=== PATIENT | male | born 1945 | race Caucasian/White ===

== ENCOUNTER 2018-05-16 15:21 | Inpatient (IN) | payer OTHER, MEDICARE ==
[2018-05-16] MEDS ORDERED: ACETAMINOPHEN INJECTION 100 ML IVPB ONE ×2 (15:31→22:15)
--- NOTE | 2018-05-16 15:36 | PDOC ---
History of Present Illness - General Chief Complaint: SIRS, Suspected/Possible Stated Complaint: FEVER History Source: Patient Exam Limitations: No Limitations - History of Present Illness Initial Comments: 05/16/18 19:56 72 yo M with a hx of lung cancer stage 4 (followed by Dr. Damon at [facility]; on lorlatinib daily), DM, and HLD presents to the emergency department after a sudden onset of fevers and chills that occurred at 12 pm today. Prior to this, the patient stated he felt fine and denied recent sick contacts. He began feeling feverish with chills while in [place] (his primary residence). They drove to his son's home in [facility] and was symptomatic and presented to the ED. The patient states he had increase in SOB, but denies the following: nausea, vomiting, ears/nose/throat pain, chest pain, dysuria, abdominal pain, diarrhea, hematuria, hematochezia, and leg pain/swelling. Endorses travel [place] ago, but denies hx of DVT/PE, recent surgeries, recent immobilizations, and hormone use. In addition, 11/2017 he had a neoplastic process on his neck that was reduced with proton therapy. Per the patient, his doctors state that it has been unchanged in size and appearance. 05/17/18 00:07 Past History - Past Medical History Allergies/Adverse Reactions: Allergies Allergy/AdvReac Type Severity Reaction Status Date / Time codeine Allergy Verified 05/16/18 15:27 Home Medications: Ambulatory Orders Unobtainable 05/16/18 Cardiac Disorders: Yes (STAGE 4 LUNG) COPD: No - Surgical History Neurologic Surgery: Yes (CERVICAL) - Suicide/Smoking/Psychosocial Hx Smoking History: Never smoked Have you smoked in the past 12 months: No Information on smoking cessation initiated: No Hx Alcohol Use: No Drug/Substance Use Hx: No Review of Systems - Review of Systems Able to Perform ROS?: Yes Is the patient limited Hebrew proficient: No Constitutional: Yes: Chills, Fever. No: Diaphoresis, Weakness HEENTM: No: Recent change in vision, Nose Pain, Throat Pain, Mouth Pain Respiratory: Yes: Shortness of Breath. No: Cough, Hemoptysis Cardiac (ROS): No: Chest Pain, Lightheadedness, Palpitations, Syncope, Chest Tightness ABD/GI: No: Constipated, Diarrhea, Nausea, Poor Appetite, Poor Fluid Intake, Rectal Bleeding, Vomiting, Indigestion, Tarry Stools : No: Burning, Dysuria, Hematuria, Pain, Urgency Musculoskeletal: No: Back Pain, Joint Pain, Neck Pain Integumentary: No: Bruising, Lesions, Lumps, Rash Neurological: No: Headache, Numbness, Tremors, Weakness, Ataxia, Dizziness Psychiatric: No: Stressors Endocrine: No: Unexplained Weight Gain Hematologic/Lymphatic: No: Anemia *Physical Exam - Vital Signs Last Vital Signs Temp Pulse Resp BP Pulse Ox 102.6 F H 119 H 22 H 127/82 90 L 05/16/18 15:27 05/16/18 15:27 05/16/18 15:27 05/16/18 15:27 05/16/18 15:27 - Physical Exam General Appearance: Yes: Nourished, Appropriately Dressed. No: Apparent Distress, Intoxicated HEENT: positive: EOMI, LUCI, Normal Voice, Symmetrical, Hearing Grossly Normal. negative: Pale Conjunctivae, Scleral Icterus (R), Scleral Icterus (L), Muffled /Hoarse voice, Nasal Congestion, Sinus Tenderness, Excessive drooling Neck: positive: Trachea midline. negative: Tender, Lymphadenopathy (R), Lymphadenopathy (L), Tender lateral, Tender midline Respiratory/Chest: positive: Lungs Clear, Decreased Breath Sounds. negative: Chest Tender, Respiratory Distress, Crackles, Rales, Rhonchi, Stridor, Wheezing Cardiovascular: positive: Regular Rhythm, S1, S2, Tachycardia, Systolic Murmur ( grade 1) Gastrointestinal/Abdominal: positive: Normal Bowel Sounds, Flat, Soft. negative : Tender, Distended, Rebound, Tenderness, Hernia Lymphatic: negative: Adenopathy Musculoskeletal: positive: Normal Inspection. negative: CVA Tenderness, Vertebral Tenderness Extremity: positive: Normal Capillary Refill, Normal Inspection, Normal Range of Motion. negative: Tender, Calf Tenderness Integumentary: positive: Normal Color, Dry, Warm, Other (dry mucosa). 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 negative: EOM Palsy, Sensory Deficit Moderate Sedation - Procedure Monitoring Vital Signs: Procedure Monitoring Vital Signs Temperature 102.6 F H 05/16/18 15:27 Pulse Rate 119 H 05/16/18 15:27 Respiratory Rate 22 H 05/16/18 15:27 Blood Pressure 127/82 05/16/18 15:27 O2 Sat by Pulse Oximetry (%) 90 L 05/16/18 15:27 ED Treatment Course - LABORATORY CBC & Chemistry Diagram: 05/16/18 16:05 05/16/18 16:05 Medical Decision Making - Medical Decision Making 05/17/18 00:05 72 yo M with a hx of lung cancer stage 4 (followed by Dr. Damon at [facility]; on lorlatinib daily), DM, and HLD presents to the emergency department after a sudden onset of fevers and chills that occurred at 12 pm today. Initial vitals: Initial Vital Signs Temp Pulse Resp BP Pulse Ox 102.6 F H 119 H 22 H 127/82 90 L 05/16/18 15:27 05/16/18 15:27 05/16/18 15:27 05/16/18 15:27 05/16/18 15:27 Work up ddx: sepsis with etiology the following: cellulitis vs abscess on neck vs PNA vs UTI vs influenza. Laboratory Tests 05/16/18 05/16/18 05/16/18 16:05 16:05 16:05 WBC 14.5 H RBC 5.04 Hgb 14.2 Hct 41.7 MCV 82.7 MCH 28.1 MCHC 34.0 RDW 15.7 Plt Count 210 MPV 8.8 Absolute Neuts (auto) 13.4 H Neutrophils % 92.1 H Neutrophils % (Manual) 89.0 H Band Neutrophils % 7.0 Lymphocytes % 4.4 L Lymphocytes % (Manual) 4.0 L Monocytes % 2.5 L Monocytes % (Manual) 0 L Eosinophils % 0.6 Eosinophils % (Manual) 0.0 Basophils % 0.4 Basophils % (Manual) 0.0 Nucleated RBC % 0 Platelet Estimate Adequate PT with INR 12.80 INR 1.08 PTT (Actin FS) 29.5 VBG pH 7.43 H POC VBG pCO2 37.4 L POC VBG pO2 59.4 H Mixed VBG HCO3 24.3 Sodium Potassium Chloride Carbon Dioxide Anion Gap BUN Creatinine Creat Clearance w eGFR Random Glucose Lactic Acid Calcium Total Bilirubin AST ALT Alkaline Phosphatase Troponin I Total Protein Albumin Urine Color Urine Appearance Urine pH Ur Specific [place] Urine Protein Urine Glucose (UA) Urine Ketones Urine Blood Urine Nitrite Urine Bilirubin Urine Urobilinogen Ur Leukocyte Esterase Urine WBC (Auto) Urine RBC (Auto) Ur Epithelial Cells Urine Mucus Influenza A (Rapid) Influenza B (Rapid) Blood Type Antibody Screen 05/16/18 05/16/18 05/16/18 16:05 16:05 16:05 WBC RBC Hgb Hct MCV MCH MCHC RDW Plt Count MPV Absolute Neuts (auto) Neutrophils % Neutrophils % (Manual) Band Neutrophils % Lymphocytes % Lymphocytes % (Manual) Monocytes % Monocytes % (Manual) Eosinophils % Eosinophils % (Manual) Basophils % Basophils % (Manual) Nucleated RBC % Platelet Estimate PT with INR INR PTT (Actin FS) VBG pH POC VBG pCO2 POC VBG pO2 Mixed VBG HCO3 Sodium 141 Potassium 3.7 Chloride 106 Carbon Dioxide 24 Anion Gap 11 BUN 13 Creatinine 1.1 Creat Clearance w eGFR > 60 Random Glucose 254 H Lactic Acid 2.8 H* Calcium 9.2 Total Bilirubin 0.4 AST 19 ALT 23 Alkaline Phosphatase 114 Troponin I < 0.02 Total Protein 6.7 Albumin 3.5 Urine Color Urine Appearance Urine pH Ur Specific [place] Urine Protein Urine Glucose (UA) Urine Ketones Urine Blood Urine Nitrite Urine Bilirubin Urine Urobilinogen Ur Leukocyte Esterase Urine WBC (Auto) Urine RBC (Auto) Ur Epithelial Cells Urine Mucus Influenza A (Rapid) Influenza B (Rapid) Blood Type Antibody Screen 05/16/18 05/16/18 05/16/18 16:15 16:15 16:15 WBC RBC Hgb Hct MCV MCH MCHC RDW Plt Count MPV Absolute Neuts (auto) Neutrophils % Neutrophils % (Manual) Band Neutrophils % Lymphocytes % Lymphocytes % (Manual) Monocytes % Monocytes % (Manual) Eosinophils % Eosinophils % (Manual) Basophils % Basophils % (Manual) Nucleated RBC % Platelet Estimate PT with INR INR PTT (Actin FS) VBG pH POC VBG pCO2 POC VBG pO2 Mixed VBG HCO3 Sodium Potassium Chloride Carbon Dioxide Anion Gap BUN Creatinine Creat Clearance w eGFR Random Glucose Lactic Acid Calcium Total Bilirubin AST ALT Alkaline Phosphatase Troponin I Total Protein Albumin Urine Color Yellow Urine Appearance Slcloudy Urine pH 5.0 Ur Specific [place] 1.018 Urine Protein 2+ H Urine Glucose (UA) 3+ H Urine Ketones Trace H Urine Blood 2+ H Urine Nitrite Negative Urine Bilirubin Negative Urine Urobilinogen Negative Ur Leukocyte Esterase Negative Urine WBC (Auto) 4 Urine RBC (Auto) <1 Ur Epithelial Cells Rare Urine Mucus Rare Influenza A (Rapid) Negative Influenza B (Rapid) Negative Blood Type A POSITIVE Antibody Screen Negative 05/16/18 18:06 WBC RBC Hgb Hct MCV MCH MCHC RDW Plt Count MPV Absolute Neuts (auto) Neutrophils % Neutrophils % (Manual) Band Neutrophils % Lymphocytes % Lymphocytes % (Manual) Monocytes % Monocytes % (Manual) Eosinophils % Eosinophils % (Manual) Basophils % Basophils % (Manual) Nucleated RBC % Platelet Estimate PT with INR INR PTT (Actin FS) VBG pH POC VBG pCO2 POC VBG pO2 Mixed VBG HCO3 Sodium Potassium Chloride Carbon Dioxide Anion Gap BUN Creatinine Creat Clearance w eGFR Random Glucose Lactic Acid 2.3 H* Calcium Total Bilirubin AST ALT Alkaline Phosphatase Troponin I Total Protein Albumin Urine Color Urine Appearance Urine pH Ur Specific [place] Urine Protein Urine Glucose (UA) Urine Ketones Urine Blood Urine Nitrite Urine Bilirubin Urine Urobilinogen Ur Leukocyte Esterase Urine WBC (Auto) Urine RBC (Auto) Ur Epithelial Cells Urine Mucus Influenza A (Rapid) Influenza B (Rapid) Blood Type Antibody Screen initially lactic acid was 2.8 and elevated WBC. The patient was given a total of 3x 1L NS 0.9% for fluid resuscitation and given vancomycin and zosyn. CT did not show abscess in the neck and no PNA seen on imaging. Likely the infectious source is from the wound on the neck. will admit for antibiotics IV. Dispo: Admit *DC/Admit/Observation/Transfer Diagnosis at time of Disposition: Sepsis Qualifiers: Sepsis type: sepsis due to unspecified organism Qualified Code(s): A41.9 - Sepsis, unspecified organism - Discharge Dispostion Decision to Admit order: Yes - Referrals - Patient Instructions - Post Discharge Activity
[2018-05-16] MEDS ORDERED: SODIUM CHLORIDE 1,000 ML IV STA ×3 (16:03→20:33)
[2018-05-16] MEDS ORDERED: ACETAMINOPHEN 1000 MG/100 ML VIAL (NON FORMULARY) IVPB ONE ×2 (16:03→21:28)
--- NOTE | 2018-05-16 16:07 | PDOC ---
Attending Attestation - Physicial Exam PE: 05/16/18 17:06 GENERAL: Awake and alert, in no acute distress HEAD: No signs of trauma EYES: PERRLA, EOMI, sclera anicteric, conjunctiva clear ENT: (+) Dry mucous membranes, cracked tongue. Auricles normal inspection, hearing grossly normal, nares patent, oropharynx clear without exudates. NECK: (+) Yellow purulent drainage and surrounding erythema around incision at C3-C4. Normal ROM, supple, no lymphadenopathy, JVD, or masses LUNGS: (+) Tachypneic. (+) Lungs diminished at bases. No wheezes or crackles. HEART: (+) Tachycardic. Regular rhythm, normal S1 and S2, no murmurs, rubs or gallops ABDOMEN: (+) Obese. Soft, nontender, normoactive bowel sounds. No guarding, no rebound. No masses EXTREMITIES: (+) 1+ pitting edema lower extremities bilaterally. Normal range of motion. No clubbing or cyanosis. No cords, erythema, or tenderness NEUROLOGICAL: Cranial nerves II through XII grossly intact. Normal speech. SKIN: (+) Flushed sensation in face. Warm, Dry, normal turgor, no rashes or lesions noted. <Luca Griffith - Last Filed: 05/16/18 17:06> - Resident Resident Name: Slade Mendoza - ED Attending Attestation I have performed the following: I have examined & evaluated the patient, The case was reviewed & discussed with the resident, I agree w/resident's findings & plan, Exceptions are as noted - HPI HPI: 05/16/18 20:16 72yo male with hx of metastatic lung ca and a skin cancerous lesion to his posterior neck s/p proton therapy treatment. Was driving from [place] to [place] to visit his son when he developed a fever. Pt c/o feeling achy all over. Denies cp/sob/cough. No rhinorrhea or sore throat. No abd pain. No n/v/d. No dysuria. Pt with a wound to the posterior aspect of his neck. No other rashes. Pt is on oral chemo and is being treated at [facility]. - Medical Decision Making 05/16/18 16:07 I, Dr. Mavis Baird DO, attest that this document has been prepared under my direction and personally reviewed by me in its entirety. I further attest, that it accurately reflects all work, treatment, procedures and medical decision -making performed by me. 05/16/18 18:00 a/p: 72yo male with hx of metastatic lung ca and recent cancerous lesion s/p proton therapy to the posterior neck with a fever today -was traveling from [place] to [place] to visit his son, felt the fever start while driving, started to feel "ill" -pt denies rhinorrhea, no sore throat, no cough. no cp/sob -no abd pain. no n/v/d -no dysuria -pt with a wound to the posterior neck with purulent yellow drainage -pt arrives with SIRS criteria and the wound - concerning for sepsis -broad spectruma abx ordered -will send cultures -pt will need to be admitted -need imaging of the neck cellulitis/wound -pt updated on the plan -pt on oral chemotherapy 05/16/18 20:15 no acute abscess seen on ct chest ct shows lung mass/mediastinal mass -will admit for cellulitis to the posterior neck -plus pt on oral chemo with fever -broad spectrum abx ordered and started <Mavis Baird - Last Filed: 05/16/18 20:18>
[2018-05-16 16:29] LABS: VENOUS PC02 37.4 mmHg (38-52); VENOUS PH 7.43 (7.32-7.42); VENOUS PO2 59.4 mmHg (28-48)
[2018-05-16 16:32] LABS: BASO % 0.4 % (0-2.0); EOS % 0.6 % (0-4.5); HEMATOCRIT 41.7 % (35.4-49); HEMOGLOBIN 14.2 GM/dL (11.7-16.9); LYMPH % 4.4 % (8-40); MCH 28.1 pg (25.7-33.7); MEAN CELL VOLUME 82.7 fl (80-96); MEAN PLT VOLUME 8.8 fl (7.5-11.1); MONO % 2.5 % (3.8-10.2); NEUT % 92.1 % (42.8-82.8); PLATELET COUNT 210 K/MM3 (134-434); RBC 5.04 M/mm3 (4.00-5.60); RDW 15.7 % (11.9-15.9); WHITE BLOOD COUNT 14.5 K/mm3 (4.0-10.0)
[2018-05-16] MEDS ORDERED: VANCOMYCIN 1 GRAM (PRE-DOCKED) 1,000 MG/250 ML BAG IVPB ONE ×2 (16:37→17:21)
[2018-05-16] MEDS ORDERED: PIPERACILLIN/TAZOB 3.375 GM 3.375 GM in DEXTROSE 5%-WATER - 50 ML IVPB ONE (16:37)
[2018-05-16 16:45] LABS: INR 1.08 (0.83-1.09); PROTHROMBIN TIME (PATIENT) 12.8 SEC (9.7-13.0)
[2018-05-16 16:48] LABS: ACTIVATED PTT 29.5 SECONDS (25.2-36.5)
[2018-05-16 16:57] LABS: ALBUMIN 3.5 g/dl (3.4-5.0); ALK PHOS 114 U/L (45-117); ANION GAP 11 MMOL/L (8-16); BILIRUBIN,TOTAL 0.4 mg/dL (0.2-1); BLOOD UREA NITROGEN 13 mg/dL (7-18); CALCIUM 9.2 mg/dL (8.5-10.1); CHLORIDE 106 mmol/L (98-107); CO2 24 mmol/L (21-32); CREATININE 1.1 mg/dL (0.55-1.3); GLUCOSE,RANDOM 254 mg/dL (74-106); POTASSIUM 3.7 mmol/L (3.5-5.1); SGOT/AST 19 U/L (15-37); SGPT/ALT 23 U/L (13-61); SODIUM 141 mmol/L (136-145); TOT PROT 6.7 g/dl (6.4-8.2)
[2018-05-16 17:05] LABS: URINE APPEARANCE SLCLOUDY; URINE BILIRUBIN NEGATIVE (<2.0 mg/dL); URINE COLOR YELLOW; URINE GLUCOSE (UA) 3+ (NEGATIVE); URINE KETONE TRACE (NEGATIVE); URINE LEUK ESTERASE NEGATIVE (NEGATIVE); URINE NITRITE NEGATIVE (NEGATIVE); URINE PROTEIN 2+ (NEGATIVE); URINE UROBILINOGEN NEGATIVE mg/dL (0.2-1.0)
[2018-05-16] MEDS ORDERED: PIPERACILLIN/TAZOB 3.375 GM 3.375 GM/50 ML BAG IVPB ONE (17:22)
[2018-05-16 17:32] LABS: EPI CELLS RARE /HPF (FEW); URINE MUCUS RARE
[2018-05-16 18:17] LABS: PLATELET ESTIMATE ADEQUATE
[2018-05-16] MEDS ORDERED: LACTATED RINGERS SOLUTION 1,000 ML/1,000 ML INFUS.BAG IV SCH (21:00)
[2018-05-16] MEDS ORDERED: ALBUTEROL SO4 0.083% IH SOL 2.5 MG/3 ML VIAL.NEB. NEB PRN (21:55)
--- NOTE | 2018-05-16 22:09 | HP ---
CHIEF COMPLAINT: PCP: HISTORY OF PRESENT ILLNESS: unable to obtain Hx from pt. Upon my arrival to pt room, pt is altered, lethargic and is lying on the floor. Pt says he tried leaving and fell. Hx from ED notes/EMR Per ED notes: 72 yo M PMH lung cancer stage 4 s/p proton therapy, (followed by Dr. Frye at [facility]; on PO chemo and lorlatinib daily), DM, and HLD, recent cancerous lesion to the posterior neck presents to the emergency department after a sudden onset of fevers and chills that occurred at 12 pm today. Prior to this, the patient stated he felt fine and denied recent sick contacts. He began feeling feverish with chills and body aches while in [place] (his primary residence). They drove to his son's home in [facility] and was symptomatic and presented to the ED. The patient states he had increase in SOB, but denies the following: nausea, vomiting, ears/nose/throat pain, chest pain, dysuria, abdominal pain, diarrhea, hematuria, hematochezia, and leg pain/swelling. Endorses travel to [place] 3 weeks ago, but denies hx of DVT/PE, recent surgeries , recent immobilizations, and hormone use. ER course was notable for: (1)2L NS, tylenol, vanc/zosyn (2) CT neck/chest (3)Head CT s/p fall in ED Recent Travel: PAST MEDICAL HISTORY: PAST SURGICAL HISTORY: S/p multilevel cervicothoracic spinal surgery, per CT imaging Social History: Smoking: Alcohol: Drugs: Family History: Allergies codeine Allergy (Verified 05/16/18 15:27) HOME MEDICATIONS: Home Medications Medication Instructions Recorded Unobtainable 05/16/18 REVIEW OF SYSTEMS as per hpi PHYSICAL EXAMINATION Vital Signs - 24 hr 05/16/18 05/16/18 15:27 21:01 Temperature 102.6 F H 100.9 F H Pulse Rate 119 H Pulse Rate [ 93 H Right Radial] Respiratory 22 H 18 Rate Blood Pressure 127/82 Blood Pressure 131/62 [Right Arm] O2 Sat by Pulse 90 L 96 Oximetry (%) GENERAL: OX1-2, lethargic, altered, lying of floor calling for help and saying wants to go home. follows commands but requires to be repeated. mild distress HEAD: NCTA EYES: PERRLA, extraocular movements intact, sclera anicteric, conjunctiva clear. No lid lag. EARS, NOSE, THROAT: nares patent, oropharynx clear without exudates. Moist mucous membranes. NECK: wound to the posterior neck with purulent yellow drainage, erythematous and scaly LUNGS: CTAB, tachypnic HEART: Tachycardia Regular rhythm, normal S1 and S2 without m/r/g ABDOMEN: Soft, NTND normoactive bowel sounds, no guarding, no rebound, no masses. obese MUSCULOSKELETAL: Normal range of motion at all joints. No bony deformities or tenderness. UPPER EXTREMITIES: 2+ pulses, warm, well-perfused. No cyanosis. No clubbing. No peripheral edema. LOWER EXTREMITIES: 2+ pulses, warm, well-perfused. No calf tenderness. No peripheral edema. NEUROLOGICAL: see above in General. Cranial nerves II-XII intact. Normal speech. sensation grossly intact, strength grossly intact in UE b/l. LE strength difficult to assess but at least 3/5 b/l SKIN: Warm, dry, posterior neck cellulitis with purulent yellow drainage Laboratory Results - last 24 hr 05/16/18 05/16/18 05/16/18 16:05 16:05 16:05 WBC 14.5 H RBC 5.04 Hgb 14.2 Hct 41.7 MCV 82.7 MCH 28.1 MCHC 34.0 RDW 15.7 Plt Count 210 MPV 8.8 Absolute Neuts (auto) 13.4 H Neutrophils % 92.1 H Neutrophils % (Manual) 89.0 H Band Neutrophils % 7.0 Lymphocytes % 4.4 L Lymphocytes % (Manual) 4.0 L Monocytes % 2.5 L Monocytes % (Manual) 0 L Eosinophils % 0.6 Eosinophils % (Manual) 0.0 Basophils % 0.4 Basophils % (Manual) 0.0 Nucleated RBC % 0 Platelet Estimate Adequate PT with INR 12.80 INR 1.08 PTT (Actin FS) 29.5 VBG pH 7.43 H POC VBG pCO2 37.4 L POC VBG pO2 59.4 H Mixed VBG HCO3 24.3 Sodium Potassium Chloride Carbon Dioxide Anion Gap BUN Creatinine Creat Clearance w eGFR Random Glucose Lactic Acid Calcium Total Bilirubin AST ALT Alkaline Phosphatase Troponin I Total Protein Albumin Urine Color Urine Appearance Urine pH Ur Specific [place] Urine Protein Urine Glucose (UA) Urine Ketones Urine Blood Urine Nitrite Urine Bilirubin Urine Urobilinogen Ur Leukocyte Esterase Urine WBC (Auto) Urine RBC (Auto) Ur Epithelial Cells Urine Mucus Influenza A (Rapid) Influenza B (Rapid) Blood Type Antibody Screen 05/16/18 05/16/18 05/16/18 16:05 16:05 16:05 WBC RBC Hgb Hct MCV MCH MCHC RDW Plt Count MPV Absolute Neuts (auto) Neutrophils % Neutrophils % (Manual) Band Neutrophils % Lymphocytes % Lymphocytes % (Manual) Monocytes % Monocytes % (Manual) Eosinophils % Eosinophils % (Manual) Basophils % Basophils % (Manual) Nucleated RBC % Platelet Estimate PT with INR INR PTT (Actin FS) VBG pH POC VBG pCO2 POC VBG pO2 Mixed VBG HCO3 Sodium 141 Potassium 3.7 Chloride 106 Carbon Dioxide 24 Anion Gap 11 BUN 13 Creatinine 1.1 Creat Clearance w eGFR > 60 Random Glucose 254 H Lactic Acid 2.8 H* Calcium 9.2 Total Bilirubin 0.4 AST 19 ALT 23 Alkaline Phosphatase 114 Troponin I < 0.02 Total Protein 6.7 Albumin 3.5 Urine Color Urine Appearance Urine pH Ur Specific [place] Urine Protein Urine Glucose (UA) Urine Ketones Urine Blood Urine Nitrite Urine Bilirubin Urine Urobilinogen Ur Leukocyte Esterase Urine WBC (Auto) Urine RBC (Auto) Ur Epithelial Cells Urine Mucus Influenza A (Rapid) Influenza B (Rapid) Blood Type Antibody Screen 05/16/18 05/16/18 05/16/18 16:15 16:15 16:15 WBC RBC Hgb Hct MCV MCH MCHC RDW Plt Count MPV Absolute Neuts (auto) Neutrophils % Neutrophils % (Manual) Band Neutrophils % Lymphocytes % Lymphocytes % (Manual) Monocytes % Monocytes % (Manual) Eosinophils % Eosinophils % (Manual) Basophils % Basophils % (Manual) Nucleated RBC % Platelet Estimate PT with INR INR PTT (Actin FS) VBG pH POC VBG pCO2 POC VBG pO2 Mixed VBG HCO3 Sodium Potassium Chloride Carbon Dioxide Anion Gap BUN Creatinine Creat Clearance w eGFR Random Glucose Lactic Acid Calcium Total Bilirubin AST ALT Alkaline Phosphatase Troponin I Total Protein Albumin Urine Color Yellow Urine Appearance Slcloudy Urine pH 5.0 Ur Specific [place] 1.018 Urine Protein 2+ H Urine Glucose (UA) 3+ H Urine Ketones Trace H Urine Blood 2+ H Urine Nitrite Negative Urine Bilirubin Negative Urine Urobilinogen Negative Ur Leukocyte Esterase Negative Urine WBC (Auto) 4 Urine RBC (Auto) <1 Ur Epithelial Cells Rare Urine Mucus Rare Influenza A (Rapid) Negative Influenza B (Rapid) Negative Blood Type A POSITIVE Antibody Screen Negative 05/16/18 18:06 WBC RBC Hgb Hct MCV MCH MCHC RDW Plt Count MPV Absolute Neuts (auto) Neutrophils % Neutrophils % (Manual) Band Neutrophils % Lymphocytes % Lymphocytes % (Manual) Monocytes % Monocytes % (Manual) Eosinophils % Eosinophils % (Manual) Basophils % Basophils % (Manual) Nucleated RBC % Platelet Estimate PT with INR INR PTT (Actin FS) VBG pH POC VBG pCO2 POC VBG pO2 Mixed VBG HCO3 Sodium Potassium Chloride Carbon Dioxide Anion Gap BUN Creatinine Creat Clearance w eGFR Random Glucose Lactic Acid 2.3 H* Calcium Total Bilirubin AST ALT Alkaline Phosphatase Troponin I Total Protein Albumin Urine Color Urine Appearance Urine pH Ur Specific [place] Urine Protein Urine Glucose (UA) Urine Ketones Urine Blood Urine Nitrite Urine Bilirubin Urine Urobilinogen Ur Leukocyte Esterase Urine WBC (Auto) Urine RBC (Auto) Ur Epithelial Cells Urine Mucus Influenza A (Rapid) Influenza B (Rapid) Blood Type Antibody Screen CT neck: Impression: No definite abscess is identified. A mildly enlarged nonspecific left posterior triangle lymph node is seen with a 1.1 cm short axis diameter. A 2.7 x 2 x 1.4 cm smoothly marginated abnormal structure is seen interposed between the hyoid and thyroid cartilages in a slightly left paramedian position - ? thyroglossal duct cyst with internal debris and probably less likely internal neoplastic disease. Direct comparison with previous studies is suggested if available from a different facility. If prior studies are not available additional evaluation utilizing nonemergent contrast- enhanced MRI is suggested. Status post multilevel cervicothoracic spinal surgery. Several cervical and upper thoracic vertebral bodies demonstrate focal sclerosis suggestive of metastatic neoplastic disease. Correlate with prior studies if available from a different facility. If prior studies are not available additional evaluation utilizing a whole body radionuclide bone scan is suggested. CT Chest: Impression: Multilevel cervical thoracic vertebral bodies sclerosis is noted suggestive of metastatic neoplastic disease. Multilevel vertebral body compression fractures are noted which are probably pathologic. A 1.7 x 1.3 cm nonspecific focus of soft tissue thickening is seen abutting the right lateral aspect of the superior mediastinum which may be on the basis of residual or recurrent neoplastic disease versus representing focal scarring. There is mildly diminished volume of the right upper chest which may be due to prior surgery and/ or radiation. Mild right upper lobe and bilateral lower lobe discoid atelectasis/linear scarring. Punctate calcified bilateral pulmonary granulomas. ASSESSMENT/PLAN: 72 yo M PMH lung cancer stage 4 s/p proton therapy, (followed by Dr. Frye at [facility]; on PO chemo and lorlatinib daily), DM, HTN, and HLD, recent cancerous lesion to the posterior neck, p/w sepsis 2/2 draining posterior neck cellulitis and now w/ fall in the ED. sepsis likely 2/2 draining neck cellulitis - leukocytosis with left shift, tachycardia, fevers. purulent yellow drainage, erythematous. no abscess per CT scan s/p 2L NS, tylenol, vanc/zosyn ID consult ENT consult wound care consult c/w vanc/zosyn f/u ucx, bcx, neck cx flu neg UA neg for infx lactic 2.8...2.3 trend lactic CRP/ESR LR 100cc monitor BP, maintain MAP>65 O2 NC, manitain sats >90% tylenol albuterol prn for SOB f/u ABG CT neck/chest reviewed above: no definite abscess is identified. Multilevel cervical thoracic vertebral bodies sclerosis is noted suggestive of metastatic neoplastic disease. lung mass/mediastinal mass Ideally should compare imaging to prior imaging from other facilities (consider noncon nonemergent MRI if no prior available, but given neck mets and following at [facility] likely he does have prior studies) Stage IV Lung CA (mets to vertebrae, neck) will try obtaining old records Continue PO chemo when meds reconciled Given the neck findings would be useful to get his radiation tx history AMS Given lung cancer consider MRI brain; neuro checks Fall - fell in ED, while trying to leave ED. no obvious signs of bleed of frx fall precautions CT head to r/o bleed consider PT consult when inpatient. HLD c/w home PO meds when meds are reconciled DM BGM ACHS ISS FEN LR 100cc replete prn NPO, speech swallow eval ppx SQH Full Code Dispo tele Visit type - Emergency Visit Emergency Visit: Yes ED Registration Date: 05/16/18 Care time: The patient presented to the Emergency Department on the above date and was hospitalized for further evaluation of their emergent condition. - New Patient This patient is new to me today: Yes Date on this admission: 05/17/18 - Critical Care Critical Care patient: No
[2018-05-16 22:23] LABS: ARTERIAL BLD GAS O2 SATURATION 83.9 % (90-98.9); ARTERIAL BLOOD GAS PCO2 35.3 mmHg (35-45)
[2018-05-16 22:24] LABS: ALLENS TEST POSITIVE
--- NOTE | 2018-05-16 22:24 | PN ---
Teaching Attending Note Name of Resident: Black Yates ATTENDING PHYSICIAN STATEMENT I saw and evaluated the patient. I reviewed the resident's note and discussed the case with the resident. I agree with the resident's findings and plan as documented. CC: Carrier sick when driving SUBJECTIVE: Patient seen and examined; please refer to resident note for further historical information. Briefly, this is a 72 y/o male with a PMH significant for SIV Lung CA (Mets to vertebrae, neck s/p radiation therapy to neck, follows at [facility]), DM, HTN, HLD, on home O2 for chronic dyspnea due to oncologic- related changes. Had increasing erythema at the radiation site with increased drainage purulence over the past several days and was experiencing malaise, fatigue. His does the wound care at home for the area that has been affected on the posterior neck from the radiation and apparently it has been looking a bit worse. He had a metastasis to the neck that he tells me was non- operable but did achieve satisfactory result from radiation tx. He came to the hospital here today as he was traveling from [place] to to visit his son; finally chose to come to the hospital when he was feeling more and more sick when he was driving. He continues on PO chemotherapy for his metastatic lung cancer. He did end up having some confusion noted in the ER, though this could have been skewed by this thick accent. He had a fall in the ER so CT head is pending for this issue. He was AAOx3 when I saw him but he was slow to respond to some questions. I am told that he goes to various hospitals in the area in the past as per resident note. 10 sys ROS done and negative aside from HPI PMH and PSH reviewed Socially he is a nondrinker, nonsmoker. His helps him with his ongoing chronic health issues FH asked and noncontributory Medication list reviewed with resident and is pending reconciliation. OBJECTIVE: VS, labs, imaging reviewed Posterior neck wound irregularly shaped with srrounding rubar and induration with some yellow drainage centrally; radiation-associated changes seen on surrounding skin. Unstagable. RRR s1/2 no mgr Lungs CTAB mostly with some R-sided crackles and sym exp NT ND +BS Some slowness to respond but CN2-12 wnl, no fnd Normal mood, appropriate affect Labs show leukocytosis with left shift, UA without acute infection, chemistry with hyperglycemia. +LA that did trend down with hydration. CT shows no definitive abscess; a mildly enlarged L-post. triangle LN with 1.1cm diameter. 2.7x2x1.4cm smoothly marginated abnormal structure interposed between the hyoid/thyroid cartilage in a L-paramedian position. ? thyroglossal duct cyst vs. neoplastic disease. Recommended comparing this image to prior images from other facilities (recommended noncon nonemergent MRI if no prior available, but given neck mets and following at [facility] I believe he does have prior studies). Metastatic neoplastic disease seen with the focal sclerosis of the cervical/upper thoracic vertebrae. On his chest scan there is mild RUL and b/l LL discoid atelectesis/linear scarring and calcified b/l pulmonary granulomas. ASSESSMENT AND PLAN: Patient presents with sepsis with +lactate with source likely neck; he has known metastatic lung CA to the neck (s/p local radiation) and vertebral bodies and continues on PO chemotherapy. 1) Sepsis 2/2 Cellulitis -SIRS+ with source likely being cellulitis of the area on his posterior neck that experienced post-radiation changes -Broad spectrum abx with vancomycin and zosyn, consult ID for further abx management -No afia abscess, etc. visualized on imaging. Obtain old imaging studies from [place] and consider ENT consult in AM should the structure seen on CT neck be new or vastly changed from prior records. In the process of obtaining prior records. -Consulting wound care. -Followup blood and wound cultures, trend CBC. 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 6) Confusion -Given lung cancer check MRI brain; neuro checks We need to reconcile home medications; in the process of calling pharmacy, obtaining old medical history. Unfortunately the patent is a poor historian and his family doesn't know the full history. FENA -LR@100 -PRN replete -Swallow eval bedside then regular diet -Fall precautions, OOB2C Dispo: Pending subspecialty consultation, ascertaining resolution of sepsis Consultants: ID, consider ENT Full Code
[2018-05-16 22:27] LABS: ARTERIAL BLOOD GAS PO2 49.9 mmHg (70-100)
[2018-05-16] MEDS: LACTATED RINGERS SOLUTION 1,000 ML/1,000 ML INFUS.BAG IV SCH ×2 (23:25→23:50)
[2018-05-16] MEDS ORDERED: HEPARIN NA (PORCINE) 5,000 UNITS/ML 1ML VIAL ONE (23:52)
[2018-05-17] MEDS: HEPARIN NA (PORCINE) 5,000 UNITS/ML 1ML VIAL SQ SCH ×3 (00:45→17:21)
[2018-05-17] MEDS ORDERED: PIPERACILLIN/TAZOB 4.5 GM 4.5 GM in DEXTROSE 5%-WATER 100 ML IVPB SCH ×2 (01:00→02:00)
[2018-05-17] MEDS ORDERED: PIPERACILLIN/TAZOB 4.5 GM 4.5 GM/100 ML BAG IVPB ONE (02:08)
[2018-05-17] MEDS ORDERED: ACETAMINOPHEN 1000 MG/100 ML VIAL (NON FORMULARY) IVPB PRN (04:00)
[2018-05-17] MEDS: LACTATED RINGERS SOLUTION 1,000 ML/1,000 ML INFUS.BAG IV SCH ×2 (04:40→08:53)
[2018-05-17 07:01] LABS: BASO % 0.2 % (0-2.0); EOS % 0.1 % (0-4.5); HEMATOCRIT 38.2 % (35.4-49); LYMPH % 10.3 % (8-40); MCH 28.3 pg (25.7-33.7); MCHC 34.1 g/dl (32.0-35.9); MEAN PLT VOLUME 8.8 fl (7.5-11.1); MONO % 4.6 % (3.8-10.2); NEUT % 84.8 % (42.8-82.8); PLATELET COUNT 188 K/MM3 (134-434); RDW 16.3 % (11.9-15.9); WHITE BLOOD COUNT 18.1 K/mm3 (4.0-10.0)
[2018-05-17] MEDS: INSULIN SLIDING SCALE (NOVOLOG) 1 VIAL SQ SCH ×4 (07:15→21:39)
[2018-05-17 07:39] LABS: ALBUMIN 3.1 g/dl (3.4-5.0); ALK PHOS 93 U/L (45-117); ANION GAP 11 MMOL/L (8-16); BILIRUBIN,TOTAL 0.5 mg/dL (0.2-1); BLOOD UREA NITROGEN 10 mg/dL (7-18); CALCIUM 8.3 mg/dL (8.5-10.1); CHLORIDE 107 mmol/L (98-107); CO2 23 mmol/L (21-32); GLUCOSE,RANDOM 178 mg/dL (74-106); MAGNESIUM 1.6 mg/dL (1.8-2.4); PHOSPHOROUS 2.9 mg/dL (2.5-4.9); POTASSIUM 3.6 mmol/L (3.5-5.1); SGOT/AST 19 U/L (15-37); SGPT/ALT 21 U/L (13-61); SODIUM 140 mmol/L (136-145); TOT PROT 6.3 g/dl (6.4-8.2)
--- NOTE | 2018-05-17 09:44 | EKG ---
Test Reason : Blood Pressure : / mmHG Vent. Rate : 115 BPM Atrial Rate : 115 BPM P-R Int : 154 ms QRS Dur : 076 ms QT Int : 350 ms P-R-T Axes : 049 -11 050 degrees QTc Int : 484 ms SINUS TACHYCARDIA OTHERWISE NORMAL ECG NO PREVIOUS ECGS AVAILABLE Confirmed by ELIZABETH HAINES, ALYSHA ([id number]) on 05/17/2018 9:43:41 AM Referred By: Confirmed By:ALYSHA JOHNSON MD
--- NOTE | 2018-05-17 09:44 | CONSULT ---
Admitting History and Physical - Primary Care Physician PCP: Jey Henderson - Admission History of Present Illness: 72 yo M PMH lung cancer stage 4 s/p proton therapy, , DM, HTN, and HLD, recent cancerous lesion to the posterior neck, p/w sepsis 2/2 draining posterior neck cellulitis . Fell in ER trying to get up. History Source: Patient, Medical Record Limitations to Obtaining History: No Limitations - Smoking History Smoking history: Never smoked Have you smoked in the past 12 months: No - Alcohol/Substance Use Hx Alcohol Use: No History - Admission Reason For Visit: SEPSIS - Diagnostics X-ray: Report Reviewed CT Scan: Report Reviewed - General Mental Status: Alert and Oriented, Awake and Alert, Able to Follow Commands Attention: Intact Ability to Follow Directions: Excellent Head/Neck Control: Fair - Hearing Hearing: Functional Speech Evaluation - Communication Primary Language: FRENCH Communication: Yes: Within Normal Limits Oral Expression Ability: Yes: No Impairment - Speech Production Able to Make Needs Known: Yes: WNL Intelligibility: Yes: Mildly Impaired - Speech Characteristics Voice Loudness: Normal Voice Pitch: Yes: Normal Speech Clarity: < 100% Nasal Resonance: Normal Articulation: Yes: Precise Voice, Other Observations: Yes: Progressively Weak Voice, Inadequate Breath Support - Language/Auditory Comprehension Follows: Yes: 2 Stage Simple Commands - Language/Verbal Expression Able to Respond to Simple Queries: Yes: WNL Able to Communicate Wants and Needs: Yes: WNL Functional Communication Status: Yes: WNL - 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 Memory: Yes: WNL Short Term Memory: Yes: WNL - Swallow Evaluation/Bedside Assessment Current Nutritional Intake: NPO Oral Secretions: Yes: WFL Dentition: Yes: Adequate Facial Symmetry at Rest: Symmetrical Facial Symmetry on Retraction: Symmetrical Against Resistance Opening: Normal Against Resistance Closing: Normal Pucker Lips: Normal Smile: Normal Lingual Movement: Normal, Symmetric Lingual Speed of Movement: Normal Lingual Movement Strgth Against Opposition: Normal Lingual Movement Characteristics: Normal Velopharyngeal Movement: Normal Laryngeal Elevation: WFL Laryngeal Movement: Able to Palpate Rate of Intake: WFL Bolus Size: WFL Labial Seal: WFL Chewing: WFL Oral Prep Time: WFL A-P Transit: WFL Pocketing: None Timing of Swallow: WFL Coughing/Throat Clear: No (3 oz water) Change in Voice: No
--- NOTE | 2018-05-17 09:46 | PN ---
Progress Note (short form) - Note Progress Note: ID consult dictated imp/reccd 72 yo man with NSCLC metastatic to bone, lymph nodes and TEMPERER- April 2015- s/ p extensive decompressive surgery of cspine May 2015 currently on Lorlatinib- he developed skin cancer overlying his posterior neck wound and is s/p RT september/october of this year he lives in [place] and gets his care as [facility] he reports one admission for fever 3 months ago for three days- details not known has been well came to [place] last week to visit his son recent travel to [place] several months ago has been doing his dressing on his back - site of neck wound from his RT records from [facility] reviewed IN ED he was noted to be febrile with elevated WBC and elevated lactic acid he fell in ED as well and was noted to be confused currently awake and alert-mild headache, no neck pain received vancomycin and zosyn received [address] scans neck chest head noted med list reviewed- no recent oral antiibotics SEPSIS most likely skin source continue vancomycin/zosyn- adjusted for weight continue aggressive fluids MRI cervical spine Metastatic NSCLC- on Lorlatinib d/w admitting resident d/w admitting hospitalist f/u cultures f/u imaging overall condition is guarded Problem List - Problems (1) Sepsis Code(s): A41.9 - SEPSIS, UNSPECIFIED ORGANISM Qualifiers: Sepsis type: sepsis due to unspecified organism Qualified Code(s): A41.9 - Sepsis, unspecified organism (2) Non-small cell lung cancer (NSCLC) Code(s): C34.90 - MALIGNANT NEOPLASM OF UNSP PART OF UNSP BRONCHUS OR LUNG
--- NOTE | 2018-05-17 09:53 | PN ---
Physical Exam: SUBJECTIVE: Patient seen and examined at bedside. Pt requesting water due to dry mouth. Denies chest pain, sob, pain in back of neck. He is also hungry. OBJECTIVE: Vital Signs Temperature 99.7 F H 05/17/18 08:11 Pulse Rate 85 05/17/18 08:11 Respiratory Rate 21 H 05/17/18 08:11 Blood Pressure 144/71 05/17/18 08:11 O2 Sat by Pulse Oximetry (%) 98 05/17/18 08:11 GENERAL: AAOx3. NAD. HEENT: AT/NC. EOMI. DUYEN. NECK: Posterior neck seen with ~3cm lesion with yellow fluids with no expressible drainage when squeezed. +cellulitis distal to lesion; warm and tender LUNGS: Breath sounds equal, clear to auscultation bilaterally, no wheezes, no crackles, no accessory muscle use. HEART: RRR. Normal S1, S2. No murmurs noted. ABDOMEN: Soft, NT/ND. +BS in all 4Q's. EXTREMITIES: 2+ pulses, warm, well-perfused, no edema. NEUROLOGICAL: Cranial nerves II through XII grossly intact. Normal speech, gait not observed. PSYCH: Normal mood, normal affect. SKIN: Warm, dry, normal turgor, no rashes or lesions noted CBCD WBC 18.1 K/mm3 (4.0-10.0) H 05/17/18 06:30 RBC 4.60 M/mm3 (4.00-5.60) 05/17/18 06:30 Hgb 13.0 GM/dL (11.7-16.9) 05/17/18 06:30 Hct 38.2 % (35.4-49) 05/17/18 06:30 MCV 83.0 fl (80-96) 05/17/18 06:30 MCHC 34.1 g/dl (32.0-35.9) 05/17/18 06:30 RDW 16.3 % (11.9-15.9) H 05/17/18 06:30 Plt Count 188 K/MM3 (134-434) 05/17/18 06:30 MPV 8.8 fl (7.5-11.1) 05/17/18 06:30 CMP Sodium 140 mmol/L (136-145) 05/17/18 06:30 Potassium 3.6 mmol/L (3.5-5.1) 05/17/18 06:30 Chloride 107 mmol/L (98-107) 05/17/18 06:30 Carbon Dioxide 23 mmol/L (21-32) 05/17/18 06:30 Anion Gap 11 MMOL/L (8-16) 05/17/18 06:30 BUN 10 mg/dL (7-18) 05/17/18 06:30 Creatinine 1.0 mg/dL (0.55-1.3) 05/17/18 06:30 Creat Clearance w eGFR > 60 (>60) 05/17/18 06:30 Calcium 8.3 mg/dL (8.5-10.1) L 05/17/18 06:30 Total Bilirubin 0.5 mg/dL (0.2-1) 05/17/18 06:30 AST 19 U/L (15-37) 05/17/18 06:30 ALT 21 U/L (13-61) 05/17/18 06:30 Alkaline Phosphatase 93 U/L (45-117) 05/17/18 06:30 Total Protein 6.3 g/dl (6.4-8.2) L 05/17/18 06:30 Albumin 3.1 g/dl (3.4-5.0) L 05/17/18 06:30 Active Medications Acetaminophen (Ofirmev Injection -) 1,000 mg IVPB Q6H PRN PRN Reason: FEVER Albuterol Sulfate (Ventolin 0.083% Nebulizer Soln -) 1 amp NEB Q4H PRN PRN Reason: SHORT OF BREATH/WHEEZING Heparin Sodium (Porcine) (Heparin -) 5,000 unit SQ TID GISSELLE Last Admin: 05/17/18 00:45 Dose: 5,000 unit Piperacillin Sod/Tazobactam (Sod 4.5 gm/ Dextrose) 100 mls @ 200 mls/hr IVPB Q8H-IV GISSELLE; Protocol Piperacillin Sod/Tazobactam (Sod 4.5 gm/ Dextrose) 100 mls @ 200 mls/hr IVPB Q8H-IV GISSELLE Stop: 05/17/18 10:29 Last Admin: 05/17/18 02:18 Dose: 200 mls/hr Lactated Ringer's (Lactated Ringers Solution) 1,000 ml in 1,000 mls @ 125 mls/ hr IV ASDIR GISSELLE Last Admin: 05/17/18 08:53 Dose: 125 mls/hr Vancomycin HCl 1,500 mg/ (Dextrose) 250 mls @ 166.667 mls/hr IVPB Q12H GISSELLE; Protocol Piperacillin Sod/Tazobactam (Sod 4.5 gm/ Dextrose) 100 mls @ 200 mls/hr IVPB Q8H-IV GISSELLE; Protocol Insulin Aspart (Novolog Vial Sliding Scale -) 1 vial SQ ACHS GISSELLE; Protocol Last Admin: 05/17/18 07:15 Dose: Not Given IMAGING: * Chest CT/Soft Tissue neck CT: No definite abscess identified. L posterior triangle LN seen 1.1cm short axis diameter. 2.7 x 2 x 1.4cm smooth marginated abnormal structure between hyoid and thyroid cartilages in slightly L paramedian position - ? thyroglossal duct cyst with internal debris. 1.7 x 1.3cm soft tissue thickening in R lateral aspect of superior mediastinum. No infiltrate or pleural effusion. Mild R upper lobe and b/l lower lobe discoid atelectasis/scarring seen. * CT head: neg for acute territorial infarction. Supratentorial infratentorial scattered parenchymal calcifications likely sequela of prior infectious process. ASSESSMENT/PLAN: 72 yo M PMH lung cancer stage 4 s/p proton therapy, (followed by Dr. Frye at [facility]; on PO chemo and lorlatinib daily), DM, HTN, and HLD, recent cancerous lesion to the posterior neck, p/w sepsis 2/2 draining posterior neck cellulitis and now w/ fall in the ED. #Sepsis likely 2/2 posterior neck cellulitis - leukocytosis with left shift, tachycardia, fevers. purulent yellow drainage, erythematous. no abscess per CT scan -Per ID, cont with Zosyn 4.5 gm Q8H and Vanc 1.5 gm BID (started 05/17) -LR @ 125 -BCx/UCx/Throat cx/Wound cx pending; Influenza and rapid strep neg -Lac improved 3.6 > 0.8; CRP 7.5, -Soft Tissue neck CT noted; Per surg eval, no intervention needed. -CT neck/chest reviewed noted above; no abscess noted. #Acute Metabolic Encephalopathy; s/p fall in ED -Pt stable and AAOx3. -Head CT neg -fall precautions -PT -Brain MRI ordered in setting of metatastic Lung cancer and hx of brain mets #Stage IV Lung CA (mets to vertebrae, neck) -[place] [facility] review, pt appears to have NSCLC diagnosed May 2015 with multi-level (C,T,L spine) involvement and two COUNTRY MANAGER lesions. At this time, CTAP confirmed R hilar lung mass, diffuse LN involvement. He was transferred to [place] and underwent C spine decompressive surgery. Pathology confirmed metastatic adenocarcinoma c/w primary lung on . Consequently, pt had skin cancer overlying wound from prior tumor resection. Area was irradiated with protons. On 04/09/18, he was seen by the oncologist noted to have ulceration in the area of the tumor resection and was given recommendation for local treatment. Per pt, has been cleaning ulceration daily with Mupirocin ointment. -Continue PO chemo Lorlatinib; Pt's oncologist Dr. Avinash Damon contacted, made aware of pt's clinical status. May continue chemo with current treatment. #HLD -c/w home PO meds when meds are reconciled #DM -Hold home med Glipizide -BGM ACHS -ISS FEN -LR @ 125 -replete prn -Diabetic diet #Prophylaxis -Lovenox 40 mg SQ QD dispo -cont to monitor on tele -full code Visit type - Emergency Visit Emergency Visit: Yes ED Registration Date: 05/16/18 Care time: The patient presented to the Emergency Department on the above date and was hospitalized for further evaluation of their emergent condition. - New Patient This patient is new to me today: Yes Date on this admission: 05/17/18 - Critical Care Critical Care patient: No
--- NOTE | 2018-05-17 10:50 | CONS ---
INFECTIOUS DISEASE CONSULTATION DATE OF CONSULTATION: DATE OF DICTATION: 05/17/2018 HISTORY OF PRESENT ILLNESS: This is a 72-year-old man who came to the emergency room yesterday with complaint of fever. He has a past medical history notable for non-small cell lung cancer metastatic to lymph nodes, AIRCRAFT FUELER and bones that was originally diagnosed in April 2015. At that time, he was admitted to [facility]. He was found to have multi-level C-spine, T-spine, and L-spine involvement of tumor and he had an MRI of his brain that had 2 AIRCRAFT FUELER lesions concerning for metastasis. He had a right hilar lung mass and diffuse lymph node involvement. He was transferred to [facility] in early May 2015 and he underwent neurosurgical decompressive surgery of his cervical and thoracic spine. Pathology confirmed metastatic adenocarcinoma. He has been on multiple agents since that time. Most recently, he was noted to have a skin tumor on the back of his neck at the site of his prior wound and has undergone radiation which he states he had in September and October of this year. He lives in [place] and [place] [facility] He reports that he made a trip to [place] this summer. He has otherwise been well. He does report one admission for fever 3 months ago in [place] and he states they were never able to figure out why he had fever. Details are not known of this admission. He came to [place], [facility] several days ago, to visit his son. He has had this nonhealing ulcer on the back of his neck for which his has been doing local dressings. It looks like they have been putting mupirocin topical cream to the back of his neck. In the emergency room, he was noted to be febrile with a T-maximum of 102.6. He was confused. He sustained a fall. He had CAT scans of his chest, neck and head done with the neck CT showing a 2.7-cm structure between the hyoid and thyroid cartilages which was felt to possibly be a ductal cyst versus neoplasm. He continued to have fever. He was noted to have elevated white count and lactic acid. He received 5 L of fluid in the emergency room, vancomycin and Zosyn, and I am asked to see him for further evaluation. He is currently awake. He notes he has had a mild headache. He has no neck pain. He has no abdominal pain. He has had no nausea, vomiting. Reports having had a normal bowel movement before admission to the hospital. He denies any cough. PAST MEDICAL HISTORY: Notable for a history of chronic bronchitis, JUAN FRANCISCO, BPH, GERD, arthritis with herniated disks, obesity, genital herpes. SURGICAL HISTORY: Hernia repair x3 and cataract surgery. ONCOLOGIC HISTORY: As per HPI. SOCIAL HISTORY: He is a never smoker. He lives with his . He has had exposure to second-hand smoke. 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 He is originally from [facility] [place]. He has been in this country for 40 years. He drinks alcohol socially. There is no illicit substance use. FAMILY HISTORY: Negative for cancer. There is an extensive family history of coronary artery disease and stroke. REVIEW OF SYSTEMS: Is as per HPI. PHYSICAL EXAMINATION: General: He is awake and alert. Vital Signs: Current temperature is 99.7, T-maximum 102.6, pulse is 85, blood pressure 144/71, respiratory rate is 21. HEENT: He is normocephalic. His eyes are anicteric. He has very dry oral mucosa. He has no thrush. Neck: Supple. Lungs: Clear to auscultation. Heart: Regular rate and rhythm. Abdomen: Soft. Nontender. Extremities: Have trace pedal edema. He reports his weight is 245. Skin: Exam is notable for an open ulcer on the back of his neck. It appears shallow. It is at the incision site with surrounding erythema. At this time, the dressing has been changed. There is no purulent discharge. LABORATORIES: His labs are notable for admission white count was 14.5, this morning it is 18.1, hemoglobin 13, platelets are 188. Sedimentation rate is 55. INR is 1. BUN and creatinine are 10 and 1.0. His LFTs are normal. His lactic acid is elevated at 3.6. Urinalysis is negative for leukocyte esterase, he has 4 white cells. Rapid flu test is negative. Blood culture, culture of the wound on his neck, and urine are pending. IMAGING: Findings are as previously stated. Chest CT is negative for any acute infiltrate. In summary, this is an unfortunate, 72-year-old man with a 3-year history of metastatic non-small cell lung cancer who now presents with sepsis which appears currently to be secondary to skin source. His extensive imaging revealed no evidence of pneumonia. He has no GI complaints with a normal abdominal exam. Would continue him on vancomycin and Zosyn dose adjusted for his weight. Would continue aggressive IV fluids. At this time, cultures have been sent. He needs to be observed closely. Mental status appears improved since admission. He is being evaluated for a swallowing evaluation, as well. Further recommendations to follow. Case was discussed with the admitting resident. LIV ROGERS M.D. [id number]
[2018-05-17] MEDS ORDERED: PIPERACILLIN/TAZOBACTAM 4.5 GM VIAL IVPB ONE ×2 (11:02→18:41)
[2018-05-17] MEDS ORDERED: PT OWN MED DRAWER 7, Y5N ONE ×2 (11:02→15:22)
[2018-05-17] MEDS ORDERED: DEXTROSE 5%-WATER 100 ML IVPB ONE ×2 (11:03→18:41)
[2018-05-17] MEDS: VANCOMYCIN 1,500 MG in DEXTROSE 5%-WATER - 500 ML IVPB SCH ×2 (11:36→23:30)
[2018-05-17] MEDS: PIPERACILLIN/TAZOB 4.5 GM 4.5 GM in DEXTROSE 5%-WATER 100 ML IVPB SCH ×2 (11:36→18:48)
--- NOTE | 2018-05-17 11:53 | CONSULT ---
- Consultation REQUESTING PROVIDER: CONSULT REQUEST: We have been asked to surgically evaluate this patient for neck cellulitis/infected tumor PCP:Jey Henderson HISTORY OF PRESENT ILLNESS: 72yo M h/o Stage 4 lung cancer admitted to the hospital for neck cellulitis and sepsis, surgical team was consulted for evaluation of his posterior neck cellulitis. Pt states that the mass/wound on the back of his neck has been present for about 6 months. He states that he has been treating the wound with daily dressing changes as [place] [facility] [place] not feel [place] was a good option. Pt states that he came to the hospital because he was not feeling well and having fevers. Pt states that the redness has gotten worse on his neck. Pt is a little lethargic so history was a little difficult. PMHx: DM, Lung cancer stage IV Home Medications Medication Instructions Recorded Glipizide 5 mg PO DAILY 05/17/18 HYDROmorphone [Dilaudid -] 2 mg PO Q4H 05/17/18 Mupirocin Cream [Bactroban 2% 1 applic TP BID 05/17/18 Cream -] Allergies Allergy/AdvReac Type Severity Reaction Status Date / Time codeine Allergy Severe Difficulty Verified 05/17/18 10:06 Breathing PHYSICAL EXAM: GENERAL: Awake, alert, and fully oriented, in no acute distress. HEAD: Normal with no signs of trauma. EYES: PERRL, sclera anicteric, conjunctiva clear. NECK: posterior neck shows extensive erythema with wound on posterior neck with exudate, mild tenderness LUNGS: Clear to auscultation bilat anteriorly. No wheezes, and no crackles. No accessory muscle use. HEART: Regular rate and rhythm. No murmurs NEUROLOGICAL: Normal speech, gait not observed. PSYCH: Cooperative. Good eye contact. Appropriate mood and affect. SKIN: Warm, dry, normal turgor, no rashes or lesions noted. Vital Signs Temperature 99.7 F H 05/17/18 08:11 Pulse Rate 85 05/17/18 08:11 Respiratory Rate 21 H 05/17/18 08:11 Blood Pressure 144/71 05/17/18 08:11 O2 Sat by Pulse Oximetry (%) 98 05/17/18 08:11 Lab Results WBC 18.1 K/mm3 (4.0-10.0) H 12/28/18 06:30 RBC 4.60 M/mm3 (4.00-5.60) 05/17/18 06:30 Hgb 13.0 GM/dL (11.7-16.9) 05/17/18 06:30 Hct 38.2 % (35.4-49) 05/17/18 06:30 MCV 83.0 fl (80-96) 05/17/18 06:30 MCHC 34.1 g/dl (32.0-35.9) 05/17/18 06:30 RDW 16.3 % (11.9-15.9) H 05/17/18 06:30 Plt Count 188 K/MM3 (134-434) 05/17/18 06:30 Sodium 140 mmol/L (136-145) 05/17/18 06:30 Potassium 3.6 mmol/L (3.5-5.1) 05/17/18 06:30 Chloride 107 mmol/L (98-107) 05/17/18 06:30 Carbon Dioxide 23 mmol/L (21-32) 05/17/18 06:30 Anion Gap 11 MMOL/L (8-16) 05/17/18 06:30 BUN 10 mg/dL (7-18) 05/17/18 06:30 Creatinine 1.0 mg/dL (0.55-1.3) 05/17/18 06:30 Random Glucose 178 mg/dL (74-106) H 05/17/18 06:30 Calcium 8.3 mg/dL (8.5-10.1) L 05/17/18 06:30 Blood Type A POSITIVE 05/16/18 16:15 Antibody Screen Negative 05/16/18 16:15 INR 1.08 (0.83-1.09) 05/16/18 16:05 Problem List - Problems (1) Cellulitis of neck Assessment/Plan: Plan -neck cellulitis, appears to be chronic in nature infected tumor, would not recommend surgical intervention at this time. -local wound care -IV abx as per Medicine/ID -follow up with [place]ologists [place] [facility]. Case discussed with Dr. Crocker who agrees with plan Code(s): L03.221 - CELLULITIS OF NECK
--- NOTE | 2018-05-17 13:44 | PN ---
Teaching Attending Note Name of Resident: Kay Ryan ATTENDING PHYSICIAN STATEMENT I saw and evaluated the patient. I reviewed the resident's note and discussed the case with the resident. I agree with the resident's findings and plan as documented. SUBJECTIVE: seen this am , he denies any Cp or SOB. has no neck pain. mild CALDERÓN . no visula changes. No diarrhea or abd pain. no dysuria . admits to fever since yesterday only but had a draining wound in his neck at the site of a malignant growth OBJECTIVE: NAD, awake, alert, and cooperative , provided adequate information about his history HEENT: dry MM, no facial droop , no LAP in neck CV: RRR, 2/6 Sm at RUSB . Lungs: CTAB abd: obese, soft, NT, ND , NL BS Ext : no edema skin : posterior neck erythema, edema , and a mid line wound with purulent drainage . Neuro : symmetric face, No facial droop, round equal pupils. 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 1- Sepsis: likely due to posterior neck cellulitis with infected wound. no other source can be identified at this moment - r/o deeper abscess , with MRI of spine - cont Abx . d/w Dr. Martines - cont IVF - blood cx and wound cx sent . - appreciate surgical eval. no intervention 2- metabolic encephalopathy, due to infection . mental status improved after hydration and abx . - brain MRI pending given his history of brain mets . 3- Stage IV NSC lung cancer. will review out side records. - will ask his oncologist if Loratinib needs to be held in setting of sepsis 4- DM : SSI for now . hold his home glipizide 5- CT scans reviewed. R upper mediastinal lesion . likely part of his metastatic disease. 6- DVT PX : change heparin to Lovenox
[2018-05-17 17:09] VITALS: BMI 38.3
[2018-05-17] MEDS ORDERED: VANCOMYCIN 1,500 MG in DEXTROSE 5%-WATER - 500 ML IVPB SCH (18:00)
[2018-05-18] MEDS ORDERED: PIPERACILLIN/TAZOBACTAM 4.5 GM VIAL IVPB ONE ×3 (00:49→17:50)
[2018-05-18] MEDS ORDERED: DEXTROSE 5%-WATER 100 ML IVPB ONE ×3 (00:50→17:50)
[2018-05-18] MEDS: PIPERACILLIN/TAZOB 4.5 GM 4.5 GM in DEXTROSE 5%-WATER 100 ML IVPB SCH ×3 (01:04→17:59)
[2018-05-18] MEDS: LACTATED RINGERS SOLUTION 1,000 ML/1,000 ML INFUS.BAG IV SCH ×2 (06:56→12:26)
[2018-05-18] MEDS: INSULIN SLIDING SCALE (NOVOLOG) 1 VIAL SQ SCH ×4 (06:57→22:45)
--- NOTE | 2018-05-18 07:39 | PN ---
Physical Exam: SUBJECTIVE: Patient seen and examined at bedside. OBJECTIVE: Vital Signs Temperature 97.9 F 05/18/18 06:00 Pulse Rate 70 05/18/18 06:00 Respiratory Rate 20 05/18/18 06:00 Blood Pressure 121/71 05/18/18 06:00 O2 Sat by Pulse Oximetry (%) 96 05/17/18 21:00 GENERAL: AAOx3. NAD. HEENT: AT/NC. EOMI. DUYEN. NECK: Posterior neck seen with ~3cm lesion with yellow fluids with no expressible drainage when squeezed. +cellulitis distal to lesion; warm and tender, improved since yesterday. Redness also seen in R axilla, marked from yesterday, and improving. LUNGS: Breath sounds equal, clear to auscultation bilaterally, no wheezes, no crackles, no accessory muscle use. HEART: RRR. Normal S1, S2. No murmurs noted. ABDOMEN: Soft, NT/ND. +BS in all 4Q's. EXTREMITIES: 2+ pulses, warm, well-perfused, no edema. NEUROLOGICAL: Cranial nerves II through XII grossly intact. Normal speech, gait not observed. PSYCH: Normal mood, normal affect. SKIN: Warm, dry, normal turgor, no rashes or lesions noted CBCD WBC 18.1 K/mm3 (4.0-10.0) H 05/17/18 06:30 RBC 4.60 M/mm3 (4.00-5.60) 05/17/18 06:30 Hgb 13.0 GM/dL (11.7-16.9) 05/17/18 06:30 Hct 38.2 % (35.4-49) 05/17/18 06:30 MCV 83.0 fl (80-96) 05/17/18 06:30 MCHC 34.1 g/dl (32.0-35.9) 05/17/18 06:30 RDW 16.3 % (11.9-15.9) H 05/17/18 06:30 Plt Count 188 K/MM3 (134-434) 05/17/18 06:30 MPV 8.8 fl (7.5-11.1) 05/17/18 06:30 CMP Sodium 140 mmol/L (136-145) 12/28/18 06:30 Potassium 3.6 mmol/L (3.5-5.1) 05/17/18 06:30 Chloride 107 mmol/L (98-107) 05/17/18 06:30 Carbon Dioxide 23 mmol/L (21-32) 05/17/18 06:30 Anion Gap 11 MMOL/L (8-16) 05/17/18 06:30 BUN 10 mg/dL (7-18) 05/17/18 06:30 Creatinine 1.0 mg/dL (0.55-1.3) 05/17/18 06:30 Creat Clearance w eGFR > 60 (>60) 05/17/18 06:30 Calcium 8.3 mg/dL (8.5-10.1) L 05/17/18 06:30 Total Bilirubin 0.5 mg/dL (0.2-1) 05/17/18 06:30 AST 19 U/L (15-37) 05/17/18 06:30 ALT 21 U/L (13-61) 05/17/18 06:30 Alkaline Phosphatase 93 U/L (45-117) 05/17/18 06:30 Total Protein 6.3 g/dl (6.4-8.2) L 05/17/18 06:30 Albumin 3.1 g/dl (3.4-5.0) L 05/17/18 06:30 Active Medications Acetaminophen (Ofirmev Injection -) 1,000 mg IVPB Q6H PRN PRN Reason: FEVER Last Admin: 05/17/18 11:35 Dose: 1,000 mg Albuterol Sulfate (Ventolin 0.083% Nebulizer Soln -) 1 amp NEB Q4H PRN PRN Reason: SHORT OF BREATH/WHEEZING Last Admin: 05/17/18 21:20 Dose: 1 amp Enoxaparin Sodium (Lovenox -) 40 mg SQ DAILY GISSELLE Lactated Ringer's (Lactated Ringers Solution) 1,000 ml in 1,000 mls @ 125 mls/ hr IV ASDIR GISSELLE Last Admin: 05/18/18 06:56 Dose: 125 mls/hr Vancomycin HCl 1,500 mg/ (Dextrose) 500 mls @ 250 mls/hr IVPB BID@1100,2300 GISSELLE ; Protocol Last Admin: 05/17/18 23:30 Dose: 250 mls/hr Piperacillin Sod/Tazobactam (Sod 4.5 gm/ Dextrose) 100 mls @ 200 mls/hr IVPB Q8H-IV GISSELLE; Protocol Last Admin: 05/18/18 01:04 Dose: 200 mls/hr Insulin Aspart (Novolog Vial Sliding Scale -) 1 vial SQ ACHS GISSELLE; Protocol Last Admin: 05/18/18 06:57 Dose: Not Given Non-Formulary Medication (Patient's Own Med) 100 each PO DAILY GISSELLE Last Admin: 05/17/18 11:37 Dose: Not Given IMAGING: * Chest CT/Soft Tissue neck CT: No definite abscess identified. L posterior triangle LN seen 1.1cm short axis diameter. 2.7 x 2 x 1.4cm smooth marginated abnormal structure between hyoid and thyroid cartilages in slightly L paramedian position - ? thyroglossal duct cyst with internal debris. 1.7 x 1.3cm soft tissue thickening in R lateral aspect of superior mediastinum. No infiltrate or pleural effusion. Mild R upper lobe and b/l lower lobe discoid atelectasis/scarring seen. * CT head: neg for acute territorial infarction. Supratentorial infratentorial scattered parenchymal calcifications likely sequela of prior infectious process. ASSESSMENT/PLAN: 72 yo M PMH lung cancer stage 4 s/p proton therapy, (followed by Dr. Frye at [facility]; on PO chemo and lorlatinib daily), DM, HTN, and HLD, recent cancerous lesion to the posterior neck, p/w sepsis 2/2 draining posterior neck cellulitis and now w/ fall in the ED. #Sepsis likely 2/2 posterior neck cellulitis - leukocytosis with left shift, tachycardia, fevers. purulent yellow drainage, erythematous. no abscess per CT scan -Per ID, cont with Zosyn 4.5 gm Q8H and Vanc 1.5 gm BID (started 05/17) -Vanc trough ordered -LR @ 125 -BCx/UCx/Throat cx/Wound cx pending; Influenza and rapid strep neg -Lac improved 3.6 > 0.8 -Soft Tissue neck CT noted; Per surg eval, no intervention needed. -Soft Tissue MRI ordered #Acute Metabolic Encephalopathy; s/p fall in ED -Pt stable and AAOx3. -Head CT neg -fall precautions -PT -Brain MRI ordered in setting of metatastic Lung cancer and hx of brain mets #Stage IV Lung CA (mets to vertebrae, neck) -Prior records received from [facility] [place]. 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 At this time, CTAP confirmed R hilar lung mass, diffuse LN involvement. He was transferred to [facility] and underwent C spine decompressive surgery. Pathology confirmed metastatic adenocarcinoma c/w primary lung on . Consequently, pt had skin cancer overlying wound from prior tumor resection. Area was irradiated with protons. On 04/09/18, he was seen by the oncologist noted to have ulceration in the area of the tumor resection and was given recommendation for local treatment. Per pt, has been cleaning ulceration daily with Mupirocin ointment. -Continue PO chemo Lorlatinib; Pt's oncologist Dr. Avinash Damon contacted, made aware of pt's clinical status. May continue chemo with current treatment. -Bowel regimen: Miralax, Colace, Senna, Glycerin suppository for constipation #HLD Cont home med: -Rosuvastatin 20 mg PO QD #DM -Hold home med Glipizide -BGM ACHS -ISS FEN -LR @ 125 -replete prn -Diabetic diet #Prophylaxis -Lovenox 40 mg SQ QD dispo -cont to monitor on tele -full code -POC: Monica- or Yariel- -medications reconciled Visit type - Emergency Visit Emergency Visit: Yes ED Registration Date: 05/16/18 Care time: The patient presented to the Emergency Department on the above date and was hospitalized for further evaluation of their emergent condition. - New Patient This patient is new to me today: No - Critical Care Critical Care patient: No
[2018-05-18 08:01] LABS: BASO % 0.8 % (0-2.0); EOS % 3.4 % (0-4.5); HEMATOCRIT 36.6 % (35.4-49); HEMOGLOBIN 12.7 GM/dL (11.7-16.9); LYMPH % 11.5 % (8-40); MCH 28.8 pg (25.7-33.7); MCHC 34.7 g/dl (32.0-35.9); MEAN CELL VOLUME 83.1 fl (80-96); MEAN PLT VOLUME 9.1 fl (7.5-11.1); MONO % 7.7 % (3.8-10.2); NEUT % 76.6 % (42.8-82.8); PLATELET COUNT 155 K/MM3 (134-434); RBC 4.41 M/mm3 (4.00-5.60); RDW 16.3 % (11.9-15.9)
[2018-05-18] MEDS ORDERED: PT OWN MED DRAWER 7, Y5N ONE ×2 (10:13→17:51)
--- NOTE | 2018-05-18 10:30 | PN ---
Progress Note (short form) - Note Progress Note: much improved afebrile feels better Vital Signs Period Temp Pulse Resp BP Sys/Estrada Pulse Ox Last 24 Hr 97.9 F-99.4 F 70-82 18-20 117-141/58-88 96-98 cor-rrr lungs decreased at bases abd -soft, nt ext +erythema at back incision- improved, left axillary erythema improved-noted yesterday afternoon and marked by the nurse CBC, BMP 05/18/18 07:00 Microbiology 05/16/18 16:15 Urine - Urine Clean Catch Urine Culture - Final Contaminated: Please Repeat 05/17/18 12:44 Throat Throat Culture - Final NO BETA HEMOLYTIC STREPTOCOCCI ISOLATED 05/16/18 16:05 Blood - Peripheral Venous Blood Culture - Preliminary NO GROWTH OBTAINED AFTER 24 HOURS, INCUBATION TO CONTINUE FOR 4 DAYS. 05/16/18 16:05 Blood - Peripheral Venous Blood Culture - Preliminary NO GROWTH OBTAINED AFTER 24 HOURS, INCUBATION TO CONTINUE FOR 4 DAYS. 05/16/18 16:05 Neck Gram Stain - Final a/p SEPSIS most likely skin source continue vancomycin/zosyn- adjusted for weight continue aggressive fluids MRI cervical spine Metastatic NSCLC- on Lorlatinib clinically improved check vancomycin trough this am adjust vanco levels as needed labs stilll pending f/u imaging d/w resident Problem List - Problems (1) Sepsis Code(s): A41.9 - SEPSIS, UNSPECIFIED ORGANISM Qualifiers: Sepsis type: sepsis due to unspecified organism Qualified Code(s): A41.9 - Sepsis, unspecified organism (2) Non-small cell lung cancer (NSCLC) Code(s): C34.90 - MALIGNANT NEOPLASM OF UNSP PART OF UNSP BRONCHUS OR LUNG
[2018-05-18 10:31] LABS: BLOOD UREA NITROGEN 8 mg/dL (7-18); CREATININE 0.8 mg/dL (0.55-1.3); GLUCOSE,RANDOM 168 mg/dL (74-106)
[2018-05-18 10:32] LABS: ALBUMIN 2.7 g/dl (3.4-5.0); ALK PHOS 82 U/L (45-117); ANION GAP 11 MMOL/L (8-16); BILIRUBIN,TOTAL 0.5 mg/dL (0.2-1); CALCIUM 8.7 mg/dL (8.5-10.1); CHLORIDE 109 mmol/L (98-107); CO2 23 mmol/L (21-32); POTASSIUM 3.8 mmol/L (3.5-5.1); SGOT/AST 18 U/L (15-37); SGPT/ALT 18 U/L (13-61); SODIUM 143 mmol/L (136-145); TOT PROT 5.9 g/dl (6.4-8.2)
[2018-05-18] MEDS ORDERED: GLYCERIN 1 RECTAL SUPPOSITORY, ADULT PR PRN (10:54)
--- NOTE | 2018-05-18 10:59 | PN ---
Teaching Attending Note Name of Resident: Kay Ryan ATTENDING PHYSICIAN STATEMENT I saw and evaluated the patient. I reviewed the resident's note and discussed the case with the resident. I agree with the resident's findings and plan as documented. SUBJECTIVE: no fever or chills . hallucinations improved, and resolved this am . knew what he aw was not real. no pain, no SOB , no palpitations . feels much better OBJECTIVE: NAD, more awake,pleasant HEENT:MMM CV: RRR, 2/6 Sm at RUSB . Lungs: CTAB Ext : no edema skin : posterior neck erythema ( improved ) , edema , and a mid line wound with decreased purulent drainage . R upper back posterior to axilla with thick erythematous skin . not warm , not changed form yesterday Neuro : symmetric face, No facial droop, round equal pupils. 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 1- Sepsis: due to posterior neck cellulitis with infected wound. clinically improved - MRI of spine still pending - cont vanco and zosyn - follow vanc evel - wound cx noted - follow blood cx - decrease IVF 2- Metabolic encephalopathy, due to infection . much improved . visual hallucinations improved - brain MRI pending 3- Stage IV NSC lung cancer. - team spoke to his oncologist , cont Loratinib 4- DM : SSI for now . hold his home glipizide 5- R upper mediastinal lesion . likely part of his metastatic disease. f/u as out pt 6- DVT PX : Lovenox
[2018-05-18] MEDS: VANCOMYCIN 1,500 MG in DEXTROSE 5%-WATER - 500 ML IVPB SCH ×2 (12:24→23:07)
[2018-05-18] MEDS: ENOXAPARIN NA (PORCINE) 40 MG/0.4 ML DISP.SYRIN SQ SCH (12:25)
[2018-05-18] MEDS: DOCUSATE SODIUM 100 MG CAPSULE (FP) PO SCH (12:25)
[2018-05-18] MEDS: POLYETHYLENE GLYCOL 3350 119 GM BTL PO SCH (12:26)
[2018-05-18] MEDS: SENNOSIDES 8.6MG TABLET (FP) PO SCH (21:24)
[2018-05-18] MEDS: ROSUVASTATIN CA 20 MG TABLET (FP) PO SCH (21:24)
[2018-05-19] MEDS ORDERED: PIPERACILLIN/TAZOBACTAM 4.5 GM VIAL IVPB ONE ×3 (01:41→16:35)
[2018-05-19] MEDS ORDERED: DEXTROSE 5%-WATER 100 ML IVPB ONE ×3 (01:42→16:35)
[2018-05-19] MEDS: PIPERACILLIN/TAZOB 4.5 GM 4.5 GM in DEXTROSE 5%-WATER 100 ML IVPB SCH ×3 (01:58→17:34)
[2018-05-19] MEDS: LACTATED RINGERS SOLUTION 1,000 ML/1,000 ML INFUS.BAG IV SCH ×2 (03:00→16:00)
[2018-05-19] MEDS: INSULIN SLIDING SCALE (NOVOLOG) 1 VIAL SQ SCH ×4 (06:37→21:49)
[2018-05-19] MEDS ORDERED: PT OWN MED DRAWER 7, Y5N ONE (09:14)
[2018-05-19] MEDS: ENOXAPARIN NA (PORCINE) 40 MG/0.4 ML DISP.SYRIN SQ SCH (09:23)
[2018-05-19] MEDS: DOCUSATE SODIUM 100 MG CAPSULE (FP) PO SCH (09:23)
[2018-05-19] MEDS: POLYETHYLENE GLYCOL 3350 119 GM BTL PO SCH (09:29)
[2018-05-19] MEDS: VANCOMYCIN 1,500 MG in DEXTROSE 5%-WATER - 500 ML IVPB SCH ×2 (10:30→22:27)
[2018-05-19 12:52] LABS: BASO % 0.3 % (0-2.0); EOS % 4.9 % (0-4.5); HEMATOCRIT 35.6 % (35.4-49); HEMOGLOBIN 12.1 GM/dL (11.7-16.9); LYMPH % 14.7 % (8-40); MCH 28.2 pg (25.7-33.7); MEAN CELL VOLUME 83.1 fl (80-96); MEAN PLT VOLUME 8.9 fl (7.5-11.1); MONO % 8.1 % (3.8-10.2); PLATELET COUNT 153 K/MM3 (134-434); RBC 4.29 M/mm3 (4.00-5.60); RDW 16.1 % (11.9-15.9); WHITE BLOOD COUNT 9.1 K/mm3 (4.0-10.0)
--- NOTE | 2018-05-19 14:40 | PN ---
Progress Note (short form) - Note Progress Note: much improved afebrile feels better Vital Signs Period Temp Pulse Resp BP Sys/Estrada Pulse Ox Last 24 Hr 97.9 F-98.3 F 77-90 20-22 102-136/54-76 98 cor-rrr lungs clear abd soft,nt ext no edema less erythema of the axilla, less erythema of the neck CBC, BMP 05/19/18 12:12 05/18/18 07:00 Microbiology 05/16/18 16:05 Neck Gram Stain - Final 05/16/18 16:05 Neck Wound Culture - Preliminary Strep Agalactiae Group B Staphylococcus Coagulase Neg 05/16/18 16:05 Blood - Peripheral Venous Blood Culture - Preliminary NO GROWTH OBTAINED AFTER 48 HOURS, INCUBATION TO CONTINUE FOR 3 DAYS. 05/16/18 16:05 Blood - Peripheral Venous Blood Culture - Preliminary NO GROWTH OBTAINED AFTER 48 HOURS, INCUBATION TO CONTINUE FOR 3 DAYS. 05/16/18 16:15 Urine - Urine Clean Catch Urine Culture - Final Contaminated: Please Repeat 05/17/18 12:44 Throat Throat Culture - Final NO BETA HEMOLYTIC STREPTOCOCCI ISOLATED a/p SEPSIS most likely skin source-group b strep can certainly have caused this to happen continue zosyn/vanco, check vanco trough tonight probably swtich to po augmentin in am after seeing final culture results continues to improve MRI cervical spine/brain pending Metastatic NSCLC- on Lorlatinib f/u imaging Problem List - Problems (1) Sepsis Code(s): A41.9 - SEPSIS, UNSPECIFIED ORGANISM Qualifiers: Sepsis type: sepsis due to unspecified organism Qualified Code(s): A41.9 - Sepsis, unspecified organism (2) Non-small cell lung cancer (NSCLC) Code(s): C34.90 - MALIGNANT NEOPLASM OF UNSP PART OF UNSP BRONCHUS OR LUNG
--- NOTE | 2018-05-19 17:11 | PN ---
Progress Note (short form) - Note Progress Note: Subjective: no fever or chills. No abd pain, no CP , no SOB. he feels much better . Objective: Vital Signs: Last Vital Signs Temp Pulse Resp BP Pulse Ox 98.4 F 77 20 118/81 91 L 05/19/18 13:00 05/19/18 13:00 05/19/18 13:00 05/19/18 13:00 05/19/18 09:25 Laboratory Results - last 24 hr 05/18/18 05/19/18 05/19/18 22:43 06:09 11:47 WBC RBC Hgb Hct MCV MCH MCHC RDW Plt Count MPV Absolute Neuts (auto) Neutrophils % Lymphocytes % Monocytes % Eosinophils % Basophils % Nucleated RBC % POC Glucometer 307 194 286 05/19/18 12:12 WBC 9.1 RBC 4.29 Hgb 12.1 Hct 35.6 MCV 83.1 MCH 28.2 MCHC 34.0 RDW 16.1 H Plt Count 153 MPV 8.9 Absolute Neuts (auto) 6.5 Neutrophils % 72.0 Lymphocytes % 14.7 D Monocytes % 8.1 Eosinophils % 4.9 H Basophils % 0.3 Nucleated RBC % 0 POC Glucometer Physical Exam: NAD, more awake,pleasant HEENT:MMM CV: RRR, 2/6 SM at RUSB. Lungs: CTAB Ext : no edema skin : posterior neck erythema ( improved ) , edema , and a mid line wound with decreased purulent drainage . R upper back posterior to axilla with thick erythematous skin , better . 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 1- Sepsis: due to cellulitis with wound infection. clinically improved - MRI of spine still pending - cont vanco and zosyn . vanco level tonight - wound cx noted - case was d/w Dr. Martines. depending on MRI results, possible switch to PO abx Augmentin x 7-10 days 2- Metabolic encephalopathy, due to infection. hallucination and confusion resolved - brain MRI pending 3- Stage IV NSC lung cancer. - cont Loratinib 4- DM : SSI for now . hold his home glipizide 5- R upper mediastinal lesion. likely part of his metastatic disease. f/u as out pt 6- DVT PX: Lovenox dispo : pending MRI read, and need for IV abx over night. will decide on possible dc tomorrow Visit type - Emergency Visit Emergency Visit: Yes ED Registration Date: 05/16/18 Care time: The patient presented to the Emergency Department on the above date and was hospitalized for further evaluation of their emergent condition. - New Patient This patient is new to me today: No - Critical Care Critical Care patient: No
[2018-05-19] MEDS: ROSUVASTATIN CA 20 MG TABLET (FP) PO SCH (21:45)
[2018-05-19] MEDS: SENNOSIDES 8.6MG TABLET (FP) PO SCH (21:45)
[2018-05-20] MEDS ORDERED: DEXTROSE 5%-WATER 100 ML IVPB ONE ×2 (01:07→09:06)
[2018-05-20] MEDS ORDERED: PIPERACILLIN/TAZOBACTAM 4.5 GM VIAL IVPB ONE ×2 (01:07→09:06)
[2018-05-20] MEDS: PIPERACILLIN/TAZOB 4.5 GM 4.5 GM in DEXTROSE 5%-WATER 100 ML IVPB SCH ×2 (01:15→09:35)
[2018-05-20] MEDS: INSULIN SLIDING SCALE (NOVOLOG) 1 VIAL SQ SCH ×2 (06:29→11:26)
[2018-05-20] MEDS: LACTATED RINGERS SOLUTION 1,000 ML/1,000 ML INFUS.BAG IV SCH ×2 (06:35→09:36)
[2018-05-20 06:50] LABS: BASO % 0.5 % (0-2.0); EOS % 5.7 % (0-4.5); HEMATOCRIT 34.8 % (35.4-49); HEMOGLOBIN 11.3 GM/dL (11.7-16.9); LYMPH % 14.2 % (8-40); MCHC 32.6 g/dl (32.0-35.9); MEAN CELL VOLUME 82.6 fl (80-96); MEAN PLT VOLUME 9.1 fl (7.5-11.1); MONO % 7.1 % (3.8-10.2); NEUT % 72.5 % (42.8-82.8); PLATELET COUNT 175 K/MM3 (134-434); RBC 4.21 M/mm3 (4.00-5.60); RDW 15.8 % (11.9-15.9); WHITE BLOOD COUNT 8.5 K/mm3 (4.0-10.0)
[2018-05-20 07:19] LABS: ANION GAP 8 MMOL/L (8-16); BLOOD UREA NITROGEN 9 mg/dL (7-18); CALCIUM 8.7 mg/dL (8.5-10.1); CHLORIDE 104 mmol/L (98-107); CO2 27 mmol/L (21-32); CREATININE 0.8 mg/dL (0.55-1.3); GLUCOSE,RANDOM 216 mg/dL (74-106); POTASSIUM 3.7 mmol/L (3.5-5.1); SODIUM 138 mmol/L (136-145)
[2018-05-20] MEDS: ENOXAPARIN NA (PORCINE) 40 MG/0.4 ML DISP.SYRIN SQ SCH (09:35)
[2018-05-20] MEDS: POLYETHYLENE GLYCOL 3350 119 GM BTL PO SCH (09:35)
[2018-05-20] MEDS: DOCUSATE SODIUM 100 MG CAPSULE (FP) PO SCH (09:35)
[2018-05-20] MEDS: VANCOMYCIN 1,500 MG in DEXTROSE 5%-WATER - 500 ML IVPB SCH (10:26)
--- NOTE | 2018-05-20 10:37 | PN ---
Physical Exam: SUBJECTIVE: Patient seen and examined at bedside. No acute events overnight. OBJECTIVE: Vital Signs Temperature 98.2 F 05/20/18 05:14 Pulse Rate 74 05/20/18 05:14 Respiratory Rate 20 05/20/18 05:14 Blood Pressure 130/75 05/20/18 05:14 O2 Sat by Pulse Oximetry (%) 95 05/19/18 21:00 GENERAL: AAOx3. NAD. HEENT: AT/NC. EOMI. DUYEN. NECK: Posterior neck seen with ~3cm lesion, no drainage noted. Improving cellulitis distal to lesion; non-tender. LUNGS: Breath sounds equal, clear to auscultation bilaterally, no wheezes, no crackles, no accessory muscle use. HEART: RRR. Normal S1, S2. No murmurs noted. ABDOMEN: Soft, NT/ND. +BS in all 4Q's. EXTREMITIES: 2+ pulses, warm, well-perfused, b/l edema. NEUROLOGICAL: Cranial nerves II through XII grossly intact. Normal speech, gait not observed. PSYCH: Normal mood, normal affect. SKIN: Warm, dry, normal turgor, no rashes or lesions noted CBCD WBC 8.5 K/mm3 (4.0-10.0) 05/20/18 05:30 RBC 4.21 M/mm3 (4.00-5.60) 05/20/18 05:30 Hgb 11.3 GM/dL (11.7-16.9) L 05/20/18 05:30 Hct 34.8 % (35.4-49) L 05/20/18 05:30 MCV 82.6 fl (80-96) 05/20/18 05:30 MCHC 32.6 g/dl (32.0-35.9) 05/20/18 05:30 RDW 15.8 % (11.9-15.9) 05/20/18 05:30 Plt Count 175 K/MM3 (134-434) 05/20/18 05:30 MPV 9.1 fl (7.5-11.1) 05/20/18 05:30 CMP Sodium 138 mmol/L (136-145) 05/20/18 05:30 Potassium 3.7 mmol/L (3.5-5.1) 05/20/18 05:30 Chloride 104 mmol/L (98-107) 05/20/18 05:30 Carbon Dioxide 27 mmol/L (21-32) 05/20/18 05:30 Anion Gap 8 MMOL/L (8-16) 05/20/18 05:30 BUN 9 mg/dL (7-18) 05/20/18 05:30 Creatinine 0.8 mg/dL (0.55-1.3) 05/20/18 05:30 Creat Clearance w eGFR > 60 (>60) 05/20/18 05:30 Calcium 8.7 mg/dL (8.5-10.1) 05/20/18 05:30 Total Bilirubin 0.5 mg/dL (0.2-1) 05/18/18 07:00 AST 18 U/L (15-37) 05/18/18 07:00 ALT 18 U/L (13-61) 05/18/18 07:00 Alkaline Phosphatase 82 U/L (45-117) 05/18/18 07:00 Total Protein 5.9 g/dl (6.4-8.2) L 05/18/18 07:00 Albumin 2.7 g/dl (3.4-5.0) L 05/18/18 07:00 Active Medications Acetaminophen (Ofirmev Injection -) 1,000 mg IVPB Q6H PRN PRN Reason: FEVER Last Admin: 05/17/18 11:35 Dose: 1,000 mg Albuterol Sulfate (Ventolin 0.083% Nebulizer Soln -) 1 amp NEB Q4H PRN PRN Reason: SHORT OF BREATH/WHEEZING Last Admin: 05/17/18 21:20 Dose: 1 amp Docusate Sodium (Colace -) 100 mg PO DAILY [facility] Last Admin: 05/20/18 09:35 Dose: 100 mg Enoxaparin Sodium (Lovenox -) 40 mg SQ DAILY [facility] Last Admin: 05/20/18 09:35 Dose: 40 mg Glycerin (Glycerin Suppository Adult -) 1 each [place] DAILY PRN PRN Reason: CONSTIPATION Last Admin: 05/19/18 17:33 Dose: 1 each Vancomycin HCl 1,500 mg/ (Dextrose) 500 mls @ 250 mls/hr IVPB BID@1100,2300 [facility] ; Protocol Last Admin: 05/19/18 22:27 Dose: 250 mls/hr Piperacillin Sod/Tazobactam (Sod 4.5 gm/ Dextrose) 100 mls @ 200 mls/hr IVPB Q8H-IV [facility]; Protocol Last Admin: 05/20/18 09:35 Dose: 200 mls/hr Lactated Ringer's (Lactated Ringers Solution) 1,000 ml in 1,000 mls @ 100 mls/ hr IV ASDIR [facility] Last Admin: 05/20/18 09:36 Dose: 100 mls/hr Insulin Aspart (Novolog Vial Sliding Scale -) 1 vial SQ ACHS [facility]; Protocol Last Admin: 05/20/18 06:29 Dose: 4 units Non-Formulary Medication (Patient's Own Med) 100 each PO DAILY [facility] Last Admin: 05/17/18 11:37 Dose: Not Given Polyethylene Glycol (Miralax (For Daily Use) -) 17 gm PO DAILY [facility] Last Admin: 05/20/18 09:35 Dose: 17 gm Rosuvastatin Calcium (Crestor -) 20 mg PO HS [facility] Last Admin: 05/19/18 21:45 Dose: 20 mg Senna (Senna -) 1 tab PO HS [facility] Last Admin: 05/19/18 21:45 Dose: 1 tab IMAGING: * Chest CT/Soft Tissue neck CT: No definite abscess identified. L posterior triangle LN seen 1.1cm short axis diameter. 2.7 x 2 x 1.4cm smooth marginated abnormal structure between hyoid and thyroid cartilages in slightly L paramedian position - ? thyroglossal duct cyst with internal debris. 1.7 x 1.3cm soft tissue thickening in R lateral aspect of superior mediastinum. No infiltrate or pleural effusion. Mild R upper lobe and b/l lower lobe discoid atelectasis/scarring seen. * CT head: neg for acute territorial infarction. Supratentorial infratentorial scattered parenchymal calcifications likely sequela of prior infectious process. * Brain MRI: Generalized volume loss w/ few foci of a small vessel infarction in periventricular white matter. No mass, lesion, acute infarction or hemorrhage. * C-Spine MRI: Suspicious bone marrow signal of the vertebral bodies C3, C6, C7 and further eval w/ nuclear bone scan is suggested. S/P post-b/l laminectomy and fusion from C4-C7 and posterior fusion at C2-C3. No cord compression. No abscess. No disc herniation, no spinal stenosis. ASSESSMENT/PLAN: 72 yo M PMH lung cancer stage 4 s/p proton therapy, (followed by Dr. Frye at [facility]; on PO chemo and lorlatinib daily), DM, HTN, and HLD, recent cancerous lesion to the posterior neck, p/w sepsis 2/2 draining posterior neck cellulitis and now w/ fall in the ED. #Sepsis likely 2/2 posterior neck cellulitis - leukocytosis with left shift, tachycardia, fevers. purulent yellow drainage, erythematous. no abscess per CT scan -Per ID, cont with Zosyn 4.5 gm Q8H and Vanc 1.5 gm BID (started 05/17) -IV Tylenol 1gm Q6H IVPB -Vanc trough 14.9 -LR @ 100 -BCx/UCx/Throat cx; Influenza and rapid strep neg -Wound Cx +Strep agalactiae/Staph coag neg; f/u c/s panel -Soft Tissue neck CT noted; Per surg eval, no intervention needed. -Brain MRI and C-spine MRI noted above. Will contact radiology to discuss C- Spine findings if there is acute concern for osteomyelitis or if likely related to hx of brain mets. Will also contact ID if add'l abx treatment needed. #Acute Metabolic Encephalopathy; s/p fall in ED; Pt stable and AAOx3. -Head CT neg -fall precautions -PT -Brain MRI and C-spine MRI noted above. #Stage IV Lung CA (mets to vertebrae, neck) -Prior records received from [facility] [place]. 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 At this time, CTAP confirmed R hilar lung mass, diffuse LN involvement. He [place] [facility] and underwent C spine decompressive surgery. Pathology confirmed metastatic adenocarcinoma c/w primary lung on . Consequently, pt had skin cancer overlying wound from prior tumor resection. Area was irradiated with protons. On 04/09/18, he was seen by the oncologist noted to have ulceration in the area of the tumor resection and was given recommendation for local treatment. Per pt, has been cleaning ulceration daily with Mupirocin ointment. -Continue PO chemo Lorlatinib; Pt's oncologist Dr. Avinash Damon contacted, made aware of pt's clinical status. May continue chemo with current treatment. -Bowel regimen: Miralax, Colace, Senna, Glycerin suppository for constipation #HLD Cont home med: -Rosuvastatin 20 mg PO QD #DM -Hold home med Glipizide -BGM ACHS -ISS FEN -LR @ 125 -replete prn -Diabetic diet #Prophylaxis -Lovenox 40 mg SQ QD dispo -cont to monitor on tele -full code -POC: Monica- or Yariel- -medications reconciled -possible dc today; contact oncologist Visit type - Emergency Visit Emergency Visit: Yes ED Registration Date: 05/16/18 Care time: The patient presented to the Emergency Department on the above date and was hospitalized for further evaluation of their emergent condition. - New Patient This patient is new to me today: No - Critical Care Critical Care patient: No
--- NOTE | 2018-05-20 13:09 | PN ---
Progress Note, Physician Chief Complaint: OOB in chair eating lunch No c/o neck pain temps down afebrile WBC WNL BC (-) Wound c/s grp B strep, SCN - Current Medication List Current Medications: Active Medications Acetaminophen (Ofirmev Injection -) 1,000 mg IVPB Q6H PRN PRN Reason: FEVER Last Admin: 05/17/18 11:35 Dose: 1,000 mg Albuterol Sulfate (Ventolin 0.083% Nebulizer Soln -) 1 amp NEB Q4H PRN PRN Reason: SHORT OF BREATH/WHEEZING Last Admin: 05/17/18 21:20 Dose: 1 amp Docusate Sodium (Colace -) 100 mg PO DAILY [facility] Last Admin: 05/20/18 09:35 Dose: 100 mg Enoxaparin Sodium (Lovenox -) 40 mg SQ DAILY [facility] Last Admin: 05/20/18 09:35 Dose: 40 mg Glycerin (Glycerin Suppository Adult -) 1 each [place] DAILY PRN PRN Reason: CONSTIPATION Last Admin: 05/19/18 17:33 Dose: 1 each Vancomycin HCl 1,500 mg/ (Dextrose) 500 mls @ 250 mls/hr IVPB BID@1100,2300 [facility] ; Protocol Last Admin: 05/20/18 10:26 Dose: 250 mls/hr Piperacillin Sod/Tazobactam (Sod 4.5 gm/ Dextrose) 100 mls @ 200 mls/hr IVPB Q8H-IV [facility]; Protocol Last Admin: 05/20/18 09:35 Dose: 200 mls/hr Insulin Aspart (Novolog Vial Sliding Scale -) 1 vial SQ ACHS [facility]; Protocol Last Admin: 05/20/18 11:26 Dose: 6 units Non-Formulary Medication (Patient's Own Med) 100 each PO DAILY [facility] Last Admin: 05/17/18 11:37 Dose: Not Given Polyethylene Glycol (Miralax (For Daily Use) -) 17 gm PO DAILY [facility] Last Admin: 05/20/18 09:35 Dose: 17 gm Rosuvastatin Calcium (Crestor -) 20 mg PO HS [facility] Last Admin: 05/19/18 21:45 Dose: 20 mg Senna (Senna -) 1 tab PO HS [facility] Last Admin: 05/19/18 21:45 Dose: 1 tab - Objective Vital Signs: Vital Signs Temperature 97.8 F 05/20/18 10:00 Pulse Rate 97 H 05/20/18 10:00 Respiratory Rate 20 05/20/18 10:00 Blood Pressure 131/54 L 05/20/18 10:00 O2 Sat by Pulse Oximetry (%) 95 05/20/18 09:00 Constitutional: Yes: No Distress, Obese Eyes: Yes: Conjunctiva Clear Cardiovascular: Yes: Regular Rate and Rhythm, S1, S2 Respiratory: Yes: CTA Bilaterally Gastrointestinal: Yes: Normal Bowel Sounds, Soft, Abdomen, Obese. No: Tenderness Integumentary: Yes: Other (minimal erythema, posterior neck No drainage) Labs: CBC, BMP 05/20/18 05:30 05/20/18 05:30 INR, PTT INR 1.08 (0.83-1.09) 05/16/18 16:05 Assessment/Plan Cellulitis metastatic ca Substitute augmentin 875mg po bid x 7d Outpatient oncology follow up
[2018-05-20 14:20] VITALS: BP 130/74; PULSE 72; TEMP 98
--- NOTE | 2018-05-20 14:25 | DS ---
Physical Exam: SUBJECTIVE: Patient seen and examined OBJECTIVE: Vital Signs Period Temp Pulse Resp BP Sys/Estrada Pulse Ox Last 24 Hr 97.8 F-98.4 F 72-97 18-22 124-139/54-79 95-95 PHYSICAL EXAM GENERAL: The patient is awake, alert, and fully oriented, in no acute distress. HEAD: Normal with no signs of trauma. EYES: PERRL, extraocular movements intact, sclera anicteric, conjunctiva clear. ENT: Ears normal, nares patent, oropharynx clear without exudates, moist mucous membranes. NECK: Trachea midline, full range of motion, supple. LUNGS: Breath sounds equal, clear to auscultation bilaterally, no wheezes, no crackles, no accessory muscle use. HEART: Regular rate and rhythm, S1, S2 without murmur, rub or gallop. ABDOMEN: Soft, nontender, nondistended, normoactive bowel sounds, no guarding, no rebound, no hepatosplenomegaly, no masses. EXTREMITIES: 2+ pulses, warm, well-perfused, no edema. NEUROLOGICAL: Cranial nerves II through XII grossly intact. Normal speech, gait not observed. PSYCH: Normal mood, normal affect. SKIN: Warm, dry, normal turgor, no rashes or lesions noted. LABS Laboratory Results - last 24 hr 05/19/18 05/19/18 05/20/18 17:51 21:35 05:30 WBC 8.5 RBC 4.21 Hgb 11.3 L Hct 34.8 L MCV 82.6 MCH 27.0 MCHC 32.6 RDW 15.8 Plt Count 175 MPV 9.1 Absolute Neuts (auto) 6.2 Neutrophils % 72.5 Lymphocytes % 14.2 Monocytes % 7.1 Eosinophils % 5.7 H Basophils % 0.5 Nucleated RBC % 0 Sodium Potassium Chloride Carbon Dioxide Anion Gap BUN Creatinine Creat Clearance w eGFR POC Glucometer 177 Random Glucose Calcium Vancomycin Pre-Dose 14.9 L 05/20/18 05/20/18 05/20/18 05:30 06:01 11:24 WBC RBC Hgb Hct MCV MCH MCHC RDW Plt Count MPV Absolute Neuts (auto) Neutrophils % Lymphocytes % Monocytes % Eosinophils % Basophils % Nucleated RBC % Sodium 138 Potassium 3.7 Chloride 104 Carbon Dioxide 27 Anion Gap 8 BUN 9 Creatinine 0.8 Creat Clearance w eGFR > 60 POC Glucometer 216 271 Random Glucose 216 H Calcium 8.7 Vancomycin Pre-Dose HOSPITAL COURSE: Date of Admission:05/16/18 IMAGING: * Chest CT/Soft Tissue neck CT: No definite abscess identified. L posterior triangle LN seen 1.1cm short axis diameter. 2.7 x 2 x 1.4cm smooth marginated abnormal structure between hyoid and thyroid cartilages in slightly L paramedian position - ? thyroglossal duct cyst with internal debris. 1.7 x 1.3cm soft tissue thickening in R lateral aspect of superior mediastinum. No infiltrate or pleural effusion. Mild R upper lobe and b/l lower lobe discoid atelectasis/scarring seen. * CT head: neg for acute territorial infarction. Supratentorial infratentorial scattered parenchymal calcifications likely sequela of prior infectious process. * Brain MRI: Generalized volume loss w/ few foci of a small vessel infarction in periventricular white matter. No mass, lesion, acute infarction or hemorrhage. * C-Spine MRI: Suspicious bone marrow signal of the vertebral bodies C3, C6, C7 and further eval w/ nuclear bone scan is suggested. S/P post-b/l laminectomy and fusion from C4-C7 and posterior fusion at C2-C3. No cord compression. No abscess. No disc herniation, no spinal stenosis. 72 yo M PMH lung cancer stage 4 s/p proton therapy, (followed by Dr. Frye at [facility] [place] ; on PO chemo and lorlatinib daily), DM, HTN, and HLD, recent cancerous lesion to the posterior neck was admitted for sepsis 2/2 draining posterior neck cellulitis. Upon presentation, pt was seen in the ED on floor s/p fall. Head CT was neg. Pt was febrile at 102.6 and was subsequently treated empirically with Vanc/Zosyn, IVf. Upon physical exam, pt was found to have a posterior neck lesion with yellow purulent drainage and surrounding cellulitis. Records were obtained from [facility] and patient was found to have NSCLC with extensive mets to CTL spine as well as brain. Additionally, he had a C-spine decompressive surgery in 2016 with overlying skin cancer in this same area received proton radiation therapy. Brain MRI was unremarkable. C-Spine MRI showed suspicious bone marrows signal in C3, C6, C7 likely indicative of extensive metastasis, as discussed in detail with in-house radiologist. Furthermore, ID was consulted. Wound culture was + for Strep Agalactiae Group B and staph coagulase neg. Throughout pt's hospital stay, pt improved symptomatically. Upon ID eval, pt was continued on Vanc/Zosyn with recommendation to continue Augmentin upon discharge. Of note, pt's oncologist was made aware of pt's hospital visit. Pt was advised to follow up with his primary care physician and oncologist for followup ( complete imaging reports were provided to patient). He was also instructed to take Augmentin for 7 days with recommendation to follow up with ID outpatient. Date of Discharge: 05/20/18 Minutes to complete discharge: 40 Discharge Summary Reason For Visit: SEPSIS Current Active Problems Cellulitis of neck (Acute) Non-small cell lung cancer (NSCLC) (Chronic) Condition: Improved - Instructions Diet, Activity, Other Instructions: You were seen in the hospital for complaints of fever and mental status changes. In the hospital, you were evaluated and found to have a posterior neck cellulitis with sepsis . You were treated with antibiotics. During your hospital stay, your symptoms improved. You are being discharged home. MEDICAL RECOMMENDATIONS Please take Augmentin 875 mg by mouth two times a day for 7 days. Please start this medication tonight at 10 pm. Please also continue taking your chemo medication Lorlatinib. CONSULT RECOMMENDATIONS Please follow up with your primary care physician, Dr. Locke in 1 week. Please follow up with your oncologist, Dr. Avinash Damon, also within 1 week. follow up with the ID doctor, Dr. Randall. in 1 week If you experience persistent fever/chills, nausea/vomiting, worsening back pain , neurological symptoms, please proceed to your nearest emergency room immediately. Please take the reports to your imaging oncologist for further management of your disease Referrals: Chucky HAINES, Sanket [Other] - 1 Week Tracy Martines MD [Staff Physician] - Avinash Damon MD [Primary Care Provider] - 1 Week Disposition: HOME - Home Medications Comprehensive Discharge Medication List: Ambulatory Orders Glipizide 5 mg PO DAILY 05/17/18 Metformin HCl [Metformin HCl ER] 1 tab PO DAILY 05/17/18 Mupirocin Cream [Bactroban 2% Cream -] 1 applic TP BID 05/17/18 Rosuvastatin Calcium [Crestor] 1 tab PO HS 05/17/18 Amoxicillin/Potassium Clav [Augmentin 875-125 Tablet] 1 each PO BID #14 tablet 05/20/18 This patient is new to me today: No Emergency Visit: Yes ED Registration Date: 05/16/18 Care time: The patient presented to the Emergency Department on the above date and was hospitalized for further evaluation of their emergent condition. Critical Care patient: No - Discharge Referral Referred to [facility] No
--- NOTE | 2018-05-20 14:27 | PN ---
Teaching Attending Note Name of Resident: Kay Ryan ATTENDING PHYSICIAN STATEMENT I saw and evaluated the patient. I reviewed the resident's note and discussed the case with the resident. I agree with the resident's findings and plan as documented. SUBJECTIVE: No fever or chills. no pain . OBJECTIVE: NAD,pleasant HEENT:MMM CV: RRR, 2/6 SM at RUSB. Lungs: CTAB Ext: no edema skin: posterior neck erythema ( improved ) and a mid line wound with decreased purulent drainage . R upper back posterior to axilla with thick erythematous skin better than yesterday ASSESSMENT AND PLAN: Unfortunate 72 y/o man with h/o metastataic NSC lung ca with mets to brain, spine, and skin s/p chemo and radiation and now on Loratinib , Dm, HTN, HLP, and O2 dependent who presented with AMS and fever and was found to be septic . 1- Sepsis: due to cellulitis with wound infection.sepsis resolved and cellulitis is better - MRI of C spine with C3, C6, and C7 BM edema . no cord compression . this finding was d/dw radiologist by resident . it chandler dnot represent OM , but might represent mets. He already has met to spine. this was d/w with primary oncology team and no further work up or treatment was recommended. they will see the patient in a follow up and will review the imaging. - will substitute augmentin - follow up with ID 2- Metabolic encephalopathy, due to infection. resolved. 3- Stage IV NSC lung cancer. - cont Loratinib 4- DM : resume glipizide at dc 5- R upper mediastinal lesion. likely part of his metastatic disease. f/u as out pt dc home today f/u onc, ID, PCP
[2018-05-20] MEDS ORDERED: PT OWN MED DRAWER 7, Y5N ONE (15:00)
[2018-05-20] MEDS ORDERED: AMOX TR/POT CLAV 875MG/125MG TABLETS (FP) PO SCH (17:30)
== END 2018-05-20 15:45 | disposition home or self-care (01) | DRG 871 ==
LOC: JER 15:21 → JERBED 20:19 → J4W 05-17 08:55
PROVIDERS: ADMIT Internal Medicine; ATTEND Internal Medicine
DX: A41.9 Sepsis, unspecified organism (principal); G93.41 Metabolic encephalopathy; C34.90 Malignant neoplasm of unspecified part of unspecified bronchus or lung; C79.51 Secondary malignant neoplasm of bone; C79.89 Secondary malignant neoplasm of other specified sites; L03.221 Cellulitis of neck; C79.31 Secondary malignant neoplasm of brain; E11.9 Type 2 diabetes mellitus without complications; E78.5 Hyperlipidemia, unspecified; I10 Essential (primary) hypertension; Z99.81 Dependence on supplemental oxygen; Z79.84 Long term (current) use of oral hypoglycemic drugs; E66.9 Obesity, unspecified; Z68.38 Body mass index [BMI] 38.0-38.9, adult
CPT/HCPCS: 36415; 36600; 70450-TC; 70491-TC; 70551-TC; 71045-TC-FY; 71260-TC; 72141-TC; 80048; 80053; 81003; 81015; 82803; 82962; 83605; 83735; 84100; 84484; 85025; 85610; 85651; 85730; 86140; 86850; 86900; 86901; 87040; 87070; 87086; 87186; 87205; 87804; 87880; 93005; 93010; 94640; 99283-25; G0480; J0131; J1644; J7030